=== PATIENT | male | born 1965 | race Caucasian/White ===

== ENCOUNTER 2016-08-28 09:44 | Emergency (ER) | payer OTHER ==
[~2016-08-28] VITALS: Ht 180.3 cm; Wt 113.6 kg
[~2016-08-28 09:44] MED LIST: BENZ200C44 PO; DIPH1TAB PO; METO-274 PO; NPR500T PO; PARO10OR3 PO
[2016-08-28 09:45] VITALS: BP 144/85; PULSE 78; RESP 15; O2SAT 96
--- NOTE | 2016-08-28 09:53 | ED.REPORT ---
HPI-Back Pain 40 and Over Date of Service Aug 28, 2016 ED Provider: Kain lBair MD A 51 year old male with a history of hypertension and anxiety presents to the ED complaining of right sided sciatica pain. The pt began a new job one month ago that involved lifting. He initially felt normal, but woke one morning 3-4 weeks ago with back pain, right leg weakness, and foot numbness. He began falling fairly frequently due to "his foot being floppy." He saw his PCP two weeks ago and had an MRI done emergently. He was prescribed pain medication, which ran out eight days ago. He returned to his PCP four days ago and was referred to Dr. Jefferson, orthopedist. He saw Dr. Jefferson two days ago who declined immediate surgery but arranged a follow up appointment for nerve testing on 03/2017. The pt did not feel that he could wait that long due to the pain. The pt also experienced an episode of incontinence this morning. Nursing Notes Stated Complaint: BACK PAIN Chief Complaint: Back Pain or Injury Nursing Notes Reviewed: Yes Allergies: Coded Allergies: No Known Allergies (Verified Allergy, Unknown, 03/02/16) Scheduled Dexamethasone (Dexamethasone) 4 Mg Tablet 8 MG PO DAILY Diphenoxylate/Atropine 2.5-0.025 mg (Lomotil 2.5-0.025 mg) 1 Each Tablet 1 TABLET PO QID Metoprolol Succinate ER (Metoprolol Succinate ER) 100 Mg Tab.er.24h 100 MG PO DAILY Paroxetine (Paxil) 10 Mg/5 Ml Oral.susp 20 MG PO HS Scheduled PRN Benzonatate (Benzonatate) 200 Mg Capsule 200 MG PO TID PRN PRN For Cough Lorazepam (Lorazepam) 1 Mg Tablet 1-2 MG PO TID PRN PRN For Anxiety Naproxen (Naproxen) 500 Mg Tab 500 MG PO BID PRN PRN For Pain Oxycodone (Roxicodone) 5 Mg Tablet 5-10 MG PO Q4H PRN PRN For Pain General Time Seen by MD: 09:52 Chief Complaint Back pain (sciatic) Hx Obtained From: Patient Arrived By: Walk-in Sudden in Onset?: No Onset Occurred: More than a week ago... Recent Healthcare: No recent hospitalization, Recent doctor visit Similar Sx Previous: Yes Past Medical History Past Medical History Hypertension Prostate cancer Anxiety Past Surgical History Prostate surgery eye surgery Family History Mother has history of stomach cancer Smoking History Never Smoker Social History Alcohol Use: Denies alcohol use Drug Use: Denies drug use Other Social History: Good social support, , Local resident Ambulatory Status Independent Review of Systems Review of Systems Note: incontinence x1 Constitutional: Denies: Fever Respiratory: Denies: Non-productive cough, Shortness of breath Cardiovascular: Denies: Chest pain GI: Denies: Abdominal pain, Vomiting Musculoskeletal: Reports: Back pain, Denies: Neck pain Neurologic: Reports: Weakness Complete sys rev & neg: except as marked. Physical Exam Initial Vital Signs Vital Signs (First) Date Time Temp Pulse Resp B/P Pulse Ox O2 Delivery O2 Flow Rate FiO2 08/28/16 09:45 36.4 78 15 144/85 96 Room Air Initial VS: Reviewed General/Constitutional: Awake, Alert Respiratory / Chest: Atraumatic, Breath sounds NL, Breath sounds = bilat, No respiratory distress Cardiovascular: Heart rate NL, Regular rhythm, Heart sounds NL Abdomen: Atraumatic, Soft, Non-tender Back: Atraumatic, Full range of motion Neurologic: Oriented X3, Speech NL, No motor deficits, No sensory deficits Neck: Atraumatic, Supple, Full range of motion Lower Extremity / Pelvis / MS: Atraumatic, Full range of motion right-sided foot drop lateral thighs are symmetric Skin: Atraumatic, Color NL, No rash, Warm, Dry Head / Eyes: Atraumatic, Normocephalic, PERRL, EOMI ENT: Atraumatic, Airway patent, Mucous membranes moist Upper Extremity / MS: Atraumatic, Full range of motion Psychiatric: Affect NL, Mood NL Re-Eval/Medical Decision Source of Hx: Old records Counseled Regarding: Diagnosis, Need for follow-up, When/why to return to ED Discharge & Departure Impression: Primary Impression: Radiculopathy of lumbar region Additional Impressions: Foot drop Laterality: right Qualified Code: M21.371 - Foot drop, right foot Fecal incontinence Fecal incontinence type: incomplete defecation Qualified Code: R15.0 - Incomplete defecation Disposition: Home Discharge Condition All VS Reviewed: Yes Condition: Stable Patient Instructions: Lumbar Radiculopathy (ED) Additional Instructions: I believe the ear symptoms are related to the disc herniation that you have. Follow up as planned on Tuesday. Medication changes: Discontinue ibuprofen while taking dexamethasone. Dexamethasone 8 mg daily through Tuesday. Oxycodone 5 mg tablets 1 or 2 every 4 hours. You could take 3 at a time if needed. Acetaminophen 1000 mg every 6 hours. New Medication: Lorazepam (for muscle spasm) 1 mg tablets one or 2 every 6 hours as needed for severe spasm. Be extremely cautious when taking this with the oxycodone as there respective sedative effects will be additive and potentially dangerous. Referrals: Roc Suarez MD (PCP) Scribe Attestation Portions of this note were transcribed by Terry Farmer. I, Dr. Blair personally performed the history, physical exam and medical decision-making; I reviewed and confirmed the accuracy of the information in the transcribed note. Signed by: Jessica Hubbard, 08/28/16 and 1022. copies to: Roc Suarez MD, Kirk H MD Aug 28, 2016 09:53 TERRY FARMER Aug 28, 2016 10:02
[2016-08-28] MEDS ORDERED: LORA1TAB PO (10:24)
[2016-08-28] MEDS ORDERED: DXM4T PO (10:24)
[2016-08-28] MEDS ORDERED: OXYC-474 PO (10:24)
== END 2016-08-28 10:35 | disposition home or self-care (01) ==
LOC: SED 09:44
DX: M54.16 Radiculopathy, lumbar region (principal); W18.39XA Other fall on same level, initial encounter; Y93.89 Activity, other specified; Y92.89 Other specified places as the place of occurrence of the external cause; Y99.8 Other external cause status; M21.371 Foot drop, right foot; R15.0 Incomplete defecation; I10 Essential (primary) hypertension

== ENCOUNTER 2016-09-02 18:59 | Emergency (ER) | payer OTHER ==
[~2016-09-02] VITALS: Ht 180.3 cm; Wt 159.1 kg
[~2016-09-02 18:59] MED LIST changes: +DXM4T PO; +LORA1TAB PO; +OXYC-474 PO
[2016-09-02 19:02] VITALS: BP 151/82; PULSE 102; RESP 20; O2SAT 97
--- NOTE | 2016-09-02 21:02 | ED.REPORT ---
HPI-Back Pain 40 and Over Date of Service Sep 02, 2016 ED Provider: Dr. Pelletier A 51 year old male with a history of disc herniation, HTN, and prostate cancer presents to the ED complaining of chronic lower back pain. Associated symptoms include numbness in legs, and some urinary incontinence from the pain. He denies any urine retention. He had a recent nerve study performed and was told that he needs surgery. He has an appointment to follow-up with his doctor in 5 days, but he does not have any pain medication. Patient thinks that pain may be related to recent change of work. 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 Nursing Notes Stated Complaint: LEFT LEG/LOWER BACK PAIN Chief Complaint: Extremity Trauma Nursing Notes Reviewed: Yes Allergies: Coded Allergies: No Known Allergies (Verified Allergy, Unknown, 03/02/16) Scheduled Dexamethasone (Dexamethasone) 4 Mg Tablet 8 MG PO DAILY Diphenoxylate/Atropine 2.5-0.025 mg (Lomotil 2.5-0.025 mg) 1 Each Tablet 1 TABLET PO QID Metoprolol Succinate ER (Metoprolol Succinate ER) 100 Mg Tab.er.24h 100 MG PO DAILY Paroxetine (Paxil) 10 Mg/5 Ml Oral.susp 20 MG PO HS Scheduled PRN Benzonatate (Benzonatate) 200 Mg Capsule 200 MG PO TID PRN PRN For Cough Lorazepam (Lorazepam) 1 Mg Tablet 1-2 MG PO TID PRN PRN For Anxiety Naproxen (Naproxen) 500 Mg Tab 500 MG PO BID PRN PRN For Pain Oxycodone (Roxicodone) 5 Mg Tablet 5-10 MG PO Q4H PRN PRN For Pain General Time Seen by MD: 21:02 Chief Complaint Back pain Hx Obtained From: Patient Arrived By: Walk-in Sudden in Onset?: No Onset Occurred: Onset unknown (chronic pain) Symptom Duration: Since onset (chronic pain) Severity: Current: Severe Severity: Maximum: Severe Recent Healthcare: Recent doctor visit (Visited ED 08/28/2106 for back pain.) Similar Sx Previous: No Past Medical History Past Medical History Hypertension Prostate cancer Anxiety disc herniation Visited ED on 08/28/2016 for back pain Reports: GERD, Denies: Diabetes mellitus Past Surgical History Prostate surgery eye surgery as child, cannot move right eye Family History Mother has history of stomach cancer Smoking History Never Smoker Social History Alcohol Use: Denies alcohol use Drug Use: Denies drug use Other Social History: Good social support, , Local resident Ambulatory Status Independent Review of Systems Review of Systems Note: Urine incontinence related to pain. Denies urine retention. Constitutional: Denies: Chills, Fever Respiratory: Denies: Non-productive cough Musculoskeletal: Reports: Back pain Neurologic: Reports: Numbness (legs) Complete sys rev & neg: except as marked. Physical Exam Physical Exam Notes: Initial Vital Signs Vital Signs (First) Date Time Temp Pulse Resp B/P Pulse Ox O2 Delivery O2 Flow Rate FiO2 09/02/16 19:02 36.2 102 20 151/82 97 Room Air Initial VS: Reviewed General/Constitutional: Awake, Alert Respiratory / Chest: Atraumatic, Breath sounds NL, Breath sounds = bilat, No respiratory distress, No rales, No rhonchi, No wheezing Cardiovascular: Heart rate NL, Regular rhythm, Heart sounds NL, No gallop, No murmurs, No rubs Abdomen: No guarding, No rebound Back: No midline vertebral tend No signs of Cord Syndrome Neurologic: Oriented X3, Speech NL Burning paresthesia sensation down right lateral leg. Patient has chronic weakened dorsiflexion of right leg with plantarflexion. No new neurologic deficit. Skin: Atraumatic, Color NL, Warm, Dry Head / Eyes: Atraumatic, Normocephalic, PERRL, EOMI ENT: Atraumatic, Mucous membranes moist Ankle / Foot: Full range of motion (Normal flexion dorsifelxion and plantar flexion of feet. ) Re-Eval/Medical Decision Med Decision/Clinical Course No signs of cord syndrome. He does have chronic right leg weakness with dorsiflexion. This is why he had the nerve conduction test. Today he has pain. His pain is adequately treated. His neurologic status was at his baseline per him and his . As such she will be discharged home with a short course of Percocet and a Medrol Dosepak. Follow-up has been established. Routine opiate and back pain aftercare instructions given. Source of Hx: Old records Re-Evaluation/Progress : Time of Eval: 22:23 Re-Evaluation/Progress Note: Rechecked patient, explained diagnosis, and plan for discharge. Patient understands and agrees with the plan. All questions addressed. Counseled Regarding: Diagnosis, Need for follow-up, When/why to return to ED Discharge & Departure Shift Change Sign-Out Response to Therapy: Improved Impression: Primary Impression: Radiculopathy of lumbar region Disposition: Home Discharge Condition All VS Reviewed: Yes Condition: Stable Patient Instructions: Lumbar Radiculopathy (ED) Additional Instructions: Take 1-2 Percocet every 6 hours as needed for pain. Do not take any other acetaminophen products while taking the Percocet. Finish the Medrol Dosepak. Do not take any anti-inflammatories while taking the Medrol Dosepak. Do not drive or drink alcohol or consume acetaminophen while taking the Medrol Dosepak. Keep your outpatient follow-up. I concur that he most likely will need surgical intervention. If he develops any loss of bowel or bladder control or urine retention or new neurologic symptoms then come back to emergency department. Do not hesitate to return if any problems or any worsening symptoms. Referrals: Roc Suarez MD (PCP) Scribe Attestation Portions of this note were transcribed by Keenan Herman. I, Dr. Pelletier personally performed the history, physical exam and medical decision-making; I reviewed and confirmed the accuracy of the information in the transcribed note. Signed by: Jessica Beaulieu, 09/02/2016, 4216. copies to: Roc Suarez MD, Todd P DO Sep 02, 2016 21:02 Keenan Herman Sep 02, 2016 21:10
[2016-09-02] MEDS ORDERED: HYDROmorphone 1 mg/mL Inj IM ONE (21:10)
[2016-09-02] MEDS ORDERED: Dexamethasone 10 mg/mL Inj IM ONE (21:10)
[2016-09-02] MEDS ORDERED: _oxyCODONE/APAP 5-325 mg Tablet PO PRN (22:05)
[2016-09-02 22:39] VITALS: BP 146/91; PULSE 89; O2SAT 95
[2016-09-02 22:45] VITALS: BP 146/91; PULSE 89; O2SAT 95
== END 2016-09-02 22:47 | disposition home or self-care (01) ==
LOC: SED 18:59
DX: M54.16 Radiculopathy, lumbar region (principal); R20.0 Anesthesia of skin; R32 Unspecified urinary incontinence; I10 Essential (primary) hypertension; K21.9 Gastro-esophageal reflux disease without esophagitis
CPT/HCPCS: 96372; 99284; J1100; J1170; J1885

== ENCOUNTER 2016-09-07 20:35 | Inpatient (IN) | payer OTHER ==
[~2016-09-07] VITALS: Ht 180.3 cm; Wt 145.8 kg
[2016-09-07 20:54] VITALS: BP 126/81; PULSE 105; RESP 18; O2SAT 96
--- NOTE | 2016-09-07 21:36 | ED.REPORT ---
HPI-General Illness Date of Service Sep 07, 2016 ED Provider: Claus Hackett MD The patient is a 51 year old male with history of hypertension, GERD, disc herniation, and anxiety who presents to the emergency department complaining of right-sided chest pain that began 4-5 days ago. He describes the pain as "stabbing." The pain radiates through to his back. The pain is worse with breathing and coughing. He has never had chest pain in the past. He denies history of blood clots. He has also had a cough and congestion. The patient states he started experiencing worsening sciatic back pain that began last week. He was seen in the emergency department and discharged home with outpatient followup with a spine surgeon. He has been taking oxycodone for pain and his thinks that he may have been nodding off and choking on his secretions. Nursing Notes Stated Complaint: COUGH Chief Complaint: General Complaint Nursing Notes Reviewed: Yes Allergies: Coded Allergies: No Known Allergies (Verified Allergy, Unknown, 03/02/16) Scheduled Metoprolol Succinate ER (Metoprolol Succinate ER) 100 Mg Tab.er.24h 100 MG PO QAM Oxycodone HCl/Acetaminophen 5-325 (Endocet 5-325) 1 Each Tablet 1.5 TABLET PO Q4H 0200,0600,1000,1400,1800,2200 Scheduled PRN Lorazepam (Lorazepam) 1 Mg Tablet 1-2 MG PO TID PRN PRN For Anxiety General Time Seen by MD: 21:09 Chief Complaint Chest pain Hx Obtained From: Patient, Spouse Arrived By: Walk-in Sudden in Onset?: Yes Onset Occurred: 5 days ago Symptom Duration: Since onset Location: : Back: Chest Quality: Painful, Stabbing Severity: Current: Moderate Severity: Maximum: Severe Recent Healthcare: No recent hospitalization, Recent doctor visit Similar Sx Previous: No Past Medical History Past Medical History Hypertension Prostate cancer Anxiety Disc herniation Reports: GERD Past Surgical History Prostate surgery eye surgery as child, cannot move right eye Family History Mother has history of stomach cancer Smoking History Never Smoker Social History Alcohol Use: Denies alcohol use Drug Use: Denies drug use Other Social History: Good social support, , Local resident Ambulatory Status Independent Review of Systems Full Review of Systems Ears / Nose / Throat: Reports: Nasal congestion Respiratory: Reports: Non-productive cough Cardiovascular: Reports: Chest pain Musculoskeletal: Reports: Back pain, Extremity pain Complete sys rev & neg: except as marked. Physical Exam Vital Signs Vital Signs Date Time Temp Pulse Resp B/P Pulse Ox O2 Delivery O2 Flow Rate FiO2 09/07/16 23:06 108 19 149/103 92 Nasal Cannula 2 09/07/16 20:54 36.9 105 18 126/81 96 Room Air Initial VS: Reviewed Head / Eyes: Atraumatic, Normocephalic, PERRL ENT: Mucous membranes moist, Conjunctiva normal, No scleral icterus Neck: Supple, Non-tender, Full range of motion Abdomen / GI: Soft, Non-tender, No guarding, No rebound, No distention Lymphatic: No lymphadenopathy Extremities: No swelling Skin: Warm, Dry, No cyanosis Psychiatric: Mood/affect normal, Behavior normal, Normal thought content General/Constitutional: Awake, Alert, Cooperative Respiratory / Chest: No respiratory distress Wheezing / Retractions: Positive: Wheezing expiratory Coarse breath sounds bilaterally. Reproducible tenderness about his right lateral chest wall. Cardiovascular: Heart rate NL, Regular rhythm, Heart sounds NL, Cap refill not delayed, Peripheral circulation NL, Pulses = bilaterally Lower Extremity / Pelvis / MS: No swelling, Non-tender, Neurologic intact, Vascular intact, No edema No unilateral calf swelling or tenderness. Neurologic: Oriented X3, Speech NL, No sensory deficits Reduced strength with plantar flexion of the right foot which is not new. Interpretation & Diagnostics Lab Results Interpretation Result Diagram: 09/07/160 09/07/16 2250 Test 09/07/16 22:50 White Blood Count 18.0th/mm3 (3.8-10.1) Red Blood Count 4.66mil/mm3 (4.40-5.80) Hemoglobin 13.6g/dL (13.8-17.2) Hematocrit 42.3% (41.0-50.0) Mean Corpuscular Volume 90.8fL (81-100) Mean Corpuscular Hemoglobin 29.2pg (27.0-35.0) Mean Corpuscular Hemoglobin Concent 32.2% (32.0-37.0) Red Cell Distribution Width 14.3% (12.3-15.4) Platelet Count 320bil/L (150-400) Neutrophils (%) (Auto) 76% (40-74) Lymphocytes (%) (Auto) 16% (14-46) Monocytes (%) (Auto) 6% (4-12) Eosinophils (%) (Auto) 0% (0-5) Basophils (%) (Auto) 0% (0-3) Band Neutrophils % 5% (1-5) D-Dimer 2.66mg/L FEU (<0.50) Sodium Level 132mEq/L (134-144) Potassium Level 4.1mEq/L (3.5-5.2) Chloride Level 89mEq/L (97-108) Carbon Dioxide Level 26mmol/L (18-29) Blood Urea Nitrogen 16mg/dL (6-24) Creatinine 0.83mg/dL (0.76-1.27) Estimat Glomerular Filtration Rate 103mL/min (>59) Glucose Level 117mg/dL (60-99) Calcium Level 9.3mg/dL (8.5-10.1) Magnesium Level 2.3mg/dL (1.6-2.6) Total Bilirubin 0.6mg/dL (0.0-1.2) Aspartate Amino Transf (AST/SGOT) 21U/L (0-50) Alanine Aminotransferase (ALT/SGPT) 32U/L (0-44) Alkaline Phosphatase 101U/L (25-150) Troponin T 0.010ug/L (0.0-0.011) Total Protein 7.9g/dL (6.4-8.4) Albumin 3.2g/dL (3.4-5.0) Hold Abarca Top Tube Received (Received) ECG Interpretation ECG Interpretation: Sinus rhythm with a rate of 95 bpm Normal axis Normal intervals No ST segment elevations No T wave abnormalities No prior EKGs available for comparison Time: 21:30 Interpreted by: ED physician X-Ray Chest Interpretation Chest Xray Interpretation: IMPRESSION: Dense pneumonia right upper lobe, both anteriorly and within what appears to be the superior segment right lower lobe. This is best seen on the lateral view. It is unlikely that a mass lesion has developed since 04/13/16 when the same areas appeared free of active disease but followup plain films after symptoms have improved to ensure that mass lesion is not present is recommended. Dictated by: Tyrese Garcia M.D. on 09/07/2016 at 22:12 Interpretation / Wet Read by: Interpret - Radiologist Re-Eval/Medical Decision Med Decision/Clinical Course The patient is a 51 year old male with history of hypertension, GERD, disc herniation, and anxiety who presents to the emergency department complaining of right-sided chest pain that began 4-5 days ago. He describes the pain as "stabbing." The pain radiates through to his back. The pain is worse with breathing and coughing. He has never had chest pain in the past. He denies history of blood clots. He has also had a cough and congestion. The patient states he started experiencing worsening sciatic back pain that began last week. He was seen in the emergency department and discharged home with outpatient followup with a spine surgeon. He has been taking oxycodone for pain and his thinks that he may have been nodding off and choking on his secretions. Upon arrival the patient is borderline tachycardic with oxygen saturation in the low 90s on room air improving to the high 90s on 2 L by nasal cannula. CXR Dense pneumonia right upper lobe, both anteriorly and within what appears to be the superior segment right lower lobe. This is best seen on the lateral view. It is unlikely that a mass lesion has developed since 04/13/16 when the same areas appeared free of active disease but followup plain films after symptoms have improved to ensure that mass lesion is not present is recommended. LABS: leukocytosis 18, CBC otherwise unremarkable, d-dimer 2.66, CMP: mild hyponatremia with a Na of 132, Ca WNL, Mg WNL, K WNL, mild albuminemia, otherwise unremarkable, troponin negative I initiated treatment with ceftriaxone and azithromycin for community-acquired pneumonia. His initial presentation was not entirely clear and given concern for possible pulmonary embolism I obtained a d-dimer which has come back elevated. That being said, the overall clinical picture is highly convincing for pneumonia and I do not feel that further immediate workup for pulmonary embolism is required. Prior to starting antibiotics I obtained 2 sets of blood cultures. He is then placed on maintenance fluids. Given his hypoxia and the extent of his pneumonia I have admitted him to the hospital service for further workup and management. He was transferred in stable condition. Source of Hx: Old records Time of Eval: 23:17 Re-Evaluation/Progress Note: Rechecked the patient. Discussed plan for admission. All questions were addressed. Consultation : Consulted With: Hospitalist Requested Call at: 23:19 Spectacle Truer: Will see patient, Agrees with eval, Agrees with plan, Accepts admit Counseled Regarding: Diagnosis, Lab results, Need for admission Discharge & Departure Primary Impression: Pneumonia Pneumonia type: due to unspecified organism Laterality: right Lung location : unspecified part of lung Qualified Code: J18.9 - Pneumonia, unspecified organism Additional Impressions: Hypoxia Tachycardia Aspiration into respiratory tract Encounter type: initial encounter Qualified Code: T17.908A - Unspecified foreign body in respiratory tract, part unspecified causing other injury, initial encounter Leukocytosis Leukocytosis type: unspecified Qualified Code: D72.829 - Elevated white blood cell count, unspecified Elevated d-dimer Sciatica Laterality: unspecified laterality Qualified Code: M54.30 - Sciatica, unspecified side Disposition: ADMITTED TO HOSPITAL Discharge Condition All VS Reviewed: Yes Condition: Stable Referrals: Roc Suarez MD (PCP) Crit Care Except Billable Proc Time Spent: 30-74 minutes Services Performed: Patient management by me, Time spent at bedside, Reviewing test results, Reviewing imaging, Discussing patient care, Documentation in record, Time with fam/surrogate Scribe Attestation Portions of this note were transcribed by Susana High. I, Dr. Hackett personally performed the history, physical exam and medical decision-making; I reviewed and confirmed the accuracy of the information in the transcribed note. Signed by: Jessica Londono, 09/07/2016 at 0001. copies to: Roc Suarez MD, Beck O MD Sep 07, 2016 21:36 Susana High Sep 07, 2016 22:08
[2016-09-07] MEDS ORDERED: 0.9% Sodium Chloride 1,000 ML IV ONE (22:12)
--- NOTE | 2016-09-07 22:17 | DRSVH ---
PROCEDURE: X-RAY CHEST, TWO VIEWS ([id number]) INDICATIONS: cough TECHNIQUE: 2 views of the chest were acquired. COMPARISON: None. FINDINGS: Surgical changes and devices: None. Lungs and pleura: No pleural effusions or pneumothorax. Lungs are abnormal, with both anterior righ t upper lobe and superior segment right lower lobe opacification to the degree that dense pneumonia i s considered present (and much less likely potentially central neoplasm). Mediastinum: Mediastinal contours are normal. Heart size is normal. Bones and chest wall: No suspicious bony abnormalities. Soft tissues appear unremarkable. IMPRESSION: Dense pneumonia right upper lobe, both anteriorly and within what appears to be the supe rior segment right lower lobe. This is best seen on the lateral view. It is unlikely that a mass le shirin has developed since 04/13/16 when the same areas appeared free of active disease but followup pl ain films after symptoms have improved to ensure that mass lesion is not present is recommended. Dictated by: Tyrese Garcia M.D. on 09/07/2016 at 22:12 Approved by: Tyrese Garcia M.D. on 09/07/2016 at 22:15
[2016-09-07 23:04] LABS: Mean Corpuscular Hemoglobin 29.2 pg (27.0-35.0); Mean Corpuscular Volume 90.8 fL (81-100)
[2016-09-07 23:06] VITALS: BP 149/103; PULSE 108; RESP 19; O2SAT 92
[2016-09-07] MEDS ORDERED: cefTRIAXone Inj 2,000 MG in Dextrose 5% Minibag Plus 50 ML IV ONE (23:20)
[2016-09-07] MEDS ORDERED: Azithromycin Inj 500 MG in Dextrose 5% w/Vial Mate 250 ML IV ONE (23:20)
[2016-09-07 23:22] LABS: BASOPHILS % (AUTO) 0 % (0-3); EOSINOPHILS % (AUTO) 0 % (0-5); MONOCYTES % (AUTO) 6 % (4-12); NEUTROPHILS % (AUTO) 76 % (40-74); Platelet Count 320 bil/L (150-400)
[2016-09-07 23:29] LABS: TROPONIN T 0.01 ug/L (0.0-0.011)
[2016-09-07 23:40] LABS: Magnesium 2.3 mg/dL (1.6-2.6)
[2016-09-08] VITALS (8 sets, daily range): BP systolic 101–151; BP diastolic 61–99; PULSE 80–110; RESP 18–20; O2SAT 92–99
[2016-09-08] MEDS ORDERED: OXYC-407 PO (00:05)
[2016-09-08] MEDS ORDERED: Polyethylene Glycol (PEG) 17 Gm Powder PO PRN (03:15)
[2016-09-08] MEDS ORDERED: Alum-Mag Hydrox-Simeth 30 mL Suspension PO PRN (03:15)
--- NOTE | 2016-09-08 03:38 | PCM.HPMED ---
Subjective Date of Service Sep 08, 2016 Primary Provider: Admitting Physician: Rosa Carter DO Primary Care Physician: Roc Suarez MD Attending Physician: Rosa Carter DO Admit Status: From the Emergency Department Chief Complaint: Pneumonia, community acquired History of Present Illness: 51yo man with distant history of prostate cancer s/p resection, recent work injury of low back resulting in right sided sciatica and right foot drop presents with subjective intermittent fevers, non-productive cough, and lower right sided chest pain worsening over the last four days. He has been somewhat immobilized and on prednisone x3 for his back injury which he believes may have led to his being susceptible to this likely pneumonia. Review of Systems: complete ROS is negative except as noted above in the HPI. 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 Sciatica with foot drop Surgical History Lazy eye surgery as Prostatectomy Family History Father of lung cancer at age 44 Mother of ovarian cancer at age 70 Social History Hx Alcohol Use: No Hx Substance Use: No Hx Tobacco Use: No Smoking Status: Never Smoker Living Arrangement: with Family Exam Vital Signs Vital Sign - Last Date Time Temp Pulse Resp B/P Pulse Ox O2 Delivery O2 Flow Rate FiO2 09/08/16 02:01 99 09/08/16 00:50 37.5 20 128/82 99 Room Air 09/08/16 00:14 2 Intake and Output 09/07/16 09/07/16 09/08/16 Cumulative From/Thru 15:00 23:00 07:00 09/07/16 20:54 - 09/08/16 01:28 Intake Total 1000 ml 1000 ml Balance 1000 ml 1000 ml Intake IV Total 1000 ml 1000 ml Exam General: Alert, Oriented X3, Cooperative, No Acute Distress, Obese Head: Normocephalic, atraumatic. External ears normal. Eyes: PERRLA, EOMI. Anicteric sclerae. Mouth: Mouth Normal, Mucous Membranes Moist/[place] Neck: Neck supple with full range of motion. Chest & Lungs: Rhonchi in right base and mid lunfields, diffuse expiratory wheeze, consolidation on percussion of right lower chest. Cardiovascular: Regular Rate/Rhythm, Normal S1, Normal S2, No Murmurs/Rubs/ Gallops Abdomen: Non-tender, Non-distended, No masses, Normoactive bowel tones, Soft Musculoskeletal: Right leg is weak, can plantar flex and can't dorsiflex foot. Extremities: No cyanosis/clubbing/edema bilaterally Neurological: Grossly Neurologically Intact, Cranial Nerves 2-12 Intact, Normal Speech Lab and Diagnostics Labs Laboratory Tests Test 09/07/16 22:30 09/07/16 22:50 White Blood Count 18.0th/mm3 (3.8-10.1) Red Blood Count 4.66mil/mm3 (4.40-5.80) Hemoglobin 13.6g/dL (13.8-17.2) Hematocrit 42.3% (41.0-50.0) Mean Corpuscular Volume 90.8fL (81-100) Mean Corpuscular Hemoglobin 29.2pg (27.0-35.0) Mean Corpuscular Hemoglobin Concent 32.2% (32.0-37.0) Red Cell Distribution Width 14.3% (12.3-15.4) Platelet Count 320bil/L (150-400) Neutrophils (%) (Auto) 76% (40-74) Lymphocytes (%) (Auto) 16% (14-46) Monocytes (%) (Auto) 6% (4-12) Eosinophils (%) (Auto) 0% (0-5) Basophils (%) (Auto) 0% (0-3) Band Neutrophils % 5% (1-5) D-Dimer 2.66mg/L FEU (<0.50) Sodium Level 132mEq/L (134-144) Potassium Level 4.1mEq/L (3.5-5.2) Chloride Level 89mEq/L (97-108) Carbon Dioxide Level 26mmol/L (18-29) Blood Urea Nitrogen 16mg/dL (6-24) Creatinine 0.83mg/dL (0.76-1.27) Estimat Glomerular Filtration Rate 103mL/min (>59) Glucose Level 117mg/dL (60-99) Lactic Acid Level 1.5mmol/L (0.4-2.0) Calcium Level 9.3mg/dL (8.5-10.1) Magnesium Level 2.3mg/dL (1.6-2.6) Total Bilirubin 0.6mg/dL (0.0-1.2) Aspartate Amino Transf (AST/SGOT) 21U/L (0-50) Alanine Aminotransferase (ALT/SGPT) 32U/L (0-44) Alkaline Phosphatase 101U/L (25-150) Troponin T 0.010ug/L (0.0-0.011) Total Protein 7.9g/dL (6.4-8.4) Albumin 3.2g/dL (3.4-5.0) Hold Abarca Top Tube Received (Received) Microbiology 09/07/16 Blood Culture, Received Pending Result Diagram: 09/07/16224909/07/162249 Microbiology Blood and Sputum cultures pending X-Rays, CTs and MRIs CXR IMPRESSION: Dense pneumonia right upper lobe, both anteriorly and within what appears to be the superior segment right lower lobe. This is best seen on the lateral view. It is unlikely that a mass lesion has developed since 04/13/16 when the same areas appeared free of active disease but followup plain films after symptoms have improved to ensure that mass lesion is not present is recommended. 12-lead ECG NSR Assessment & Plan 51yo man with community acquired pneumonia: cough, fevers, lower right sided chest pain worsening over four days. Immobility and prednisone treatments for new low back pain and sciatica that started4 weeks ago may have made him susceptible to this. Sepsis, acute, POA -secondary to CAP -WBC >12, HR >90, RR >20 -treatment as below 1. Community acquired pneumonia, POA. CXR makes clear suggestion of right sided pneumonia. -legionella and s. pneumo antigens ordered -MRSA nasal swab pending - blood and sputum cultures pending -CBC w/diff and CMP in morning -Ceftriaxone 2gm IV q24h and Azithromycin 500mg IV q24h, both for four more days. -repeat CXR before discharge per radiology concern as above. -encourage fluid intake and ambulation Hyponatremia, acute, POA -2/2 hypovolemia -CTM 2. Leukocytosis, POA, secondary to infection with CAP -CBC again in am. 3. Elevated D-Dimer of 2.66, POA. Wells score of 3 indicating 16 percent chance of PE. -If symptoms of hypoxia and chest pain do not improve with antibiotics consider CTA for PE 4. Acute low back pain with sciatica and right sided foot drop, POA. Patient has had MRI and does have an appointment with an orthopedic surgeon -Percocet 10-325mg q4h PO PRN for pain 5. Anxiety, POA. Patient has Lorazepam 1-2mg PO TID PRN -continue home medication 6. Hypertension, POA. -continue home Metoprolol XL 100mg PO daily. PRN medications for nausea, heartburn, and constipation: ondansetron, maalox, senna, miralax. Pain Evaluation: Adequate Pain Control VTE Prophylaxis: Sub-Q Heparin (Unfractionated) VTE Mechanical Devices: Intermittant Pneumatic CD Resuscitation Status: CPR: Attempt Resuscitation Attending Statement The patient was seen and examined together with house staff on 09/08/2016 and I agree with the history, exam and plan as outlined in the note above. Alonso Christensen DO Sep 08, 2016 03:38 Rosa Carter DO Sep 08, 2016 04:53
[2016-09-08] MEDS ORDERED: LORazepam 1 mg Tablet PO PRN (04:40)
[2016-09-08] MEDS: oxyCODONE-Acetamin 10-325 mg Tablet PO PRN ×5 (05:51→23:43)
--- NOTE | 2016-09-08 06:29 | NUR ---
Admit Pt admitted at 0045 from the Ed with diagnosis of pneumonia and hypoxia. Pt is A/O x4, able to make needs known. Oriented to room, BR and call light. Pt is FULL CODE. Pt has cx low back/sciatica pain. He rates is 8/10. He c/o pain at 5/10 to right rib area from coughing. IV patent right AC, with azithromycin infusing, SL after. Pt on 2L o2 via NC sat 95-97%. Pt is on tele and is sinus tachy
[2016-09-08 07:20] LABS: TROPONIN T 0.01 ug/L (0.0-0.011)
[2016-09-08] MEDS: Heparin 5,000 Unit/mL Inj SUBQ SCH ×3 (07:52→23:59)
[2016-09-08] MEDS: MeTOProlol XL 50 mg ER24 Tablet PO SCH (07:52)
[2016-09-08] MEDS: Sodium Chloride LOK Flush 10 mL Syringe IVFLUSH SCH ×3 (07:53→23:48)
[2016-09-08 07:56] LABS: Mean Corpuscular Hemoglobin 28.8 pg (27.0-35.0); Mean Corpuscular Volume 91.2 fL (81-100); Platelet Count 298 bil/L (150-400)
[2016-09-08 08:15] LABS: BASOPHILS % (AUTO) 0 % (0-3); EOSINOPHILS % (AUTO) 0 % (0-5); MONOCYTES % (AUTO) 15 % (4-12); NEUTROPHILS % (AUTO) 75 % (40-74)
[2016-09-08] MEDS: oxyCODONE-Acetamin 5-325 mg Tablet PO SCH ×4 (10:00→21:55)
--- NOTE | 2016-09-08 11:58 | NUR ---
Social Work - Screening Note: Data: EMR reviewed. Pt is a 51 y/o male who was admitted for pneumonia/hypoxia per H&P. Pt's state his insurance is [facility] and her PCP is Roc Suarez MD. MARKIE met with Pt and explained role. Pt does not have group home care insurance or VA benefits. Pt has no history of HH or SNF services Pt resides at home with girlfriend where she remains independent. Pt drives and does not use any DME. SW discussed DPOA/ advanced directive and Pt declined further information. Pt's sister to provide transport home at discharge. SW provided phone number and plan on white board in room. No anticipated discharge needs. SW will continue to follow if needs arise. Assessment:Pt who is independent at baseline. Plan:Pt to discharge home today via POV. No anticipated discharge needs. SW will continue to follow if needs arise. ZAIDA Philippe Addendum: 09/08/16 at 1216 by JOSHUA CARPIO NOTE ENTERED ON WRONG PATIENT-PLEASE SEE CORRECT NOTE BELOW: Social Work - Screening Note: Data: EMR reviewed. Pt is a 51 y/o male who was admitted for pneumonia/hypoxia per H&P. Pt's state his insurance is [facility] and her PCP is Roc Suarez MD. MARKIE met with Pt and explained role. Pt does not have group home care insurance or VA benefits. Pt has no history of HH or SNF services Pt resides at home with girlfriend where he remains independent. Pt drives and does not use any DME. SW discussed DPOA/ advanced directive and Pt declined further information. 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 SW will follow-up with request. Pt's girlfriend to provide transport home at discharge. SW provided phone number and plan on white board in room. No anticipated discharge needs. SW will continue to follow. Assessment:Pt who is independent at baseline. Plan:Pt to discharge home today via POV. No anticipated discharge needs. SW will continue to follow. ZAIDA Philippe
[2016-09-08] MEDS: cefTRIAXone Inj 2,000 MG in Dextrose 5% Minibag Plus 50 ML IV SCH (23:44)
[2016-09-09 00:18] VITALS: BP 154/80; PULSE 81; RESP 18; O2SAT 98
[2016-09-09] MEDS: Azithromycin Inj 500 MG in Dextrose 5% w/Vial Mate 250 ML IV SCH ×2 (00:54→23:51)
[2016-09-09] MEDS: oxyCODONE-Acetamin 5-325 mg Tablet PO SCH ×6 (02:07→22:44)
--- NOTE | 2016-09-09 02:09 | NUR ---
Pain Patient has complained of pain at a 9/10 to 7/10 on pain scale throughout shift. Percocet 10-325mg and Percocet 5-325 administered for pain. Patient states sciatica pain is worse than right back pain due from the pneumonia. VSS. Call light within reach. Care continues.
[2016-09-09 05:22] VITALS: BP 157/77; PULSE 89; RESP 22; O2SAT 95
[2016-09-09 05:57] VITALS: PULSE 82
[2016-09-09 06:09] LABS: Mean Corpuscular Volume 91.6 fL (81-100)
[2016-09-09 08:00] VITALS: PULSE 105
[2016-09-09] MEDS: Heparin 5,000 Unit/mL Inj SUBQ SCH ×2 (08:25→17:25)
[2016-09-09] MEDS: MeTOProlol XL 50 mg ER24 Tablet PO SCH (08:25)
[2016-09-09] MEDS: Sodium Chloride LOK Flush 10 mL Syringe IVFLUSH SCH ×3 (08:30→23:52)
--- NOTE | 2016-09-09 09:26 | NUR ---
Telemetry Notified Dr. Rodriguez r/t patient is on Tele and elevated D-dimer in the ER. per Dr Rodriguez, no Tele until i see him. Called and notified biomass technician.
--- NOTE | 2016-09-09 11:39 | NUR ---
Checked account notes and [facility] has seen patient and they did not screen patient says he has tried and is over income. Patient also stated to [facility] that he is working on reinstating [employer] plan. 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
[2016-09-09 12:18] VITALS: BP 150/83; PULSE 94; RESP 20; O2SAT 95
[2016-09-09] MEDS ORDERED: Codeine-guaiFENesin 5 mL Syrup PO PRN (18:15)
--- NOTE | 2016-09-09 18:41 | DRSVH ---
PROCEDURE: CT ANGIO CHEST PULMONARY EMBOLISM ([id number]) INDICATIONS: dyspnea TECHNIQUE: After the administration of intravenous contrast, 2 mm thick sections acquired from the pulmonary api reggie to the posterior costophrenic angles. 3-dimensional maximum intensity projection (MIP) coronal a nd sagittal reformats were then acquired through the thorax. For radiation dose reduction, the follo wing was used: automated exposure control, adjustment of mA and/or kV according to patient size. COMPARISON: [facility], CR, XR CHEST 2VW, 09/07/2016, 21:43. FINDINGS: Image quality: Excellent. Pulmonary arteries: Pulmonary arteries are normal in size, and demonstrate no intraluminal filling d efects to suggest central pulmonary embolism. Lungs and pleura: There are prominent right greater than left areas of consolidation and patchy densi ty in both lungs consistent with extensive pneumonia. Compared to the chest x-ray of the previous 2 d ays the pneumonia is thought to have worsened.. No pleural effusions or pneumothorax. Central and p eripheral airways are patent. Mediastinum: Heart size is normal, without pericardial effusion. No mediastinal or hilar adenopathy . Thoracic aorta is normal in caliber and enhancement. Esophagus is normal in caliber, without hiat al hernia. Bones and chest wall: No suspicious bony lesions. Ribs and thoracic spine appear intact throughout. Thyroid gland is within normal limits.. No axillary or supraclavicular adenopathy. Abdomen: Visualized upper abdominal solid organs appear normal in the early arterial phase of enhanc ement. IMPRESSION: No evidence for pulmonary embolus. Extensive pneumonia as seen on the chest x-ray of 09/07/16. Allowing for differences in technique the pneumonia is felt to be slightly worse currently than on the previous chest x-ray because of involvem ent of portions of the left lung as well the Dictated by: Bebo Paniagua M.D. on 09/09/2016 at 18:35 Approved by: Bebo Paniagua M.D. on 09/09/2016 at 18:39
--- NOTE | 2016-09-09 19:33 | NUR ---
Telemetry Dr Rodriguez seen this patient before dinner and no new orders for Tele received.
[2016-09-09 20:49] VITALS: BP 133/73; PULSE 106; RESP 20; O2SAT 96
[2016-09-09] MEDS: Codeine-guaiFENesin 10 mL Syrup PO PRN (21:07)
--- NOTE | 2016-09-09 21:36 | PCM.PNMED ---
Subjective Date of Service Sep 09, 2016 Subjective Patient says still dyspneic though not on oxygen anymore, has pleuritic pain. Wants something for cough at night. He talks extensively regarding his right knee being swollen, precv ankle and foot x-rays were negative. States that he is planning possible surgery due to sciatica on the right leg. States his left eye does not move. Denies overnight fevers chills but states that he feels very fatigued Exam Vital Signs Vital Sign - Last Date Time Temp Pulse Resp B/P Pulse Ox O2 Delivery O2 Flow Rate FiO2 09/09/16 17:54 Supplement Oxygen 09/09/16 12:18 37.1 94 20 150/83 95 09/08/16 05:50 2.00 Intake and Output 09/08/16 09/08/16 09/09/16 Cumulative From/Thru 15:00 23:00 07:00 09/07/16 20:54 - 09/09/16 06:24 Intake Total 600 ml 1350 ml 1205 ml 4155 ml Output Total 250 ml 250 ml Balance 350 ml 1350 ml 1205 ml 3905 ml Intake Oral 600 ml 1350 ml 400 ml 2350 ml IV Total 805 ml 1805 ml Output Urine Total 250 ml 250 ml # Voids 2 1 2 5 # Bowel Movements 0 0 0 0 Exam General: NAD, laying in bed, some what dyspneic male HEENT: NCAT, poor dentition Eyes: [place] conjunctivae. No ptosis, Neck: No masses, trachea midline, no thyromegaly Lungs: CTA with normal respiratory effort, positive for wheezing and diminished lung sounds CV: RRR, no murmurs/rubs/gallops, normal PMI GI: Soft, non-tender with no hepatosplenomegaly Extremities: Swollen nonerythematous right knee Skin: Warm and dry. Psych: A&O X3, with approprate affect IVs and Medications IV Fluids None Medications Reviewed: Medications were reviewed in detail Lab and Diagnostics Result Diagram: 09/09/1653909/09/16 0540 Microbiology Blood and Sputum cultures pending X-Rays, CTs and MRIs CXR IMPRESSION: Dense pneumonia right upper lobe, both anteriorly and within what appears to be the superior segment right lower lobe. This is best seen on the lateral view. It is unlikely that a mass lesion has developed since 04/13/16 when the same areas appeared free of active disease but followup plain films after symptoms have improved to ensure that mass lesion is not present is recommended. 12-lead ECG NSR Assessment & Plan 51yo man with community acquired pneumonia: cough, fevers, lower right sided chest pain worsening over four days. Immobility and prednisone treatments for new low back pain and sciatica that started4 weeks ago may have made him susceptible to this. 1. Sepsis secondary to Community acquired pneumonia, POA. CXR makes clear suggestion of right sided pneumonia. -legionella and s. pneumo antigens ordered: Negative -MRSA nasal swab pending: Positive - blood and sputum cultures pending: Negative to date -CBC w/diff and CMP in morning -Ceftriaxone 2gm IV q24h and Azithromycin 500mg IV q24h, both for four more days. -repeat CXR before discharge per radiology concern as above. -encourage fluid intake and ambulation -- Ordered a CTA PE protocol due to elevated d-dimer at the time of admission and, not enough improvement in patient's status: Based on the results we will consider advancing antibiotics. -- Robitussin albuterol ordered Hyponatremia, acute, POA -2/2 hypovolemia -Resolved 2. Leukocytosis, POA, secondary to infection with CAP -CBC again in am. -- Ordered pro-calcitonin and respiratory panel 3. Elevated D-Dimer of 2.66, POA. Wells score of 3 indicating 16 percent chance of PE. -CTA for PE is ordered 4. Acute low back pain with sciatica and right sided foot drop, POA. Patient has had MRI and does have an appointment with an orthopedic surgeon -Percocet 10-325mg q4h PO PRN for pain 5. Anxiety, POA. Patient has Lorazepam 1-2mg PO TID PRN -continue home medication 6. Hypertension, POA. -continue home Metoprolol XL 100mg PO daily. PRN medications for nausea, heartburn, and constipation: ondansetron, maalox, senna, miralax. VTE Prophylaxis: Sub-Q Heparin (Unfractionated) VTE Mechanical Devices: Intermittant Pneumatic CD Resuscitation Status: CPR: Attempt Resuscitation Belle Rodriguez DO Sep 09, 2016 18:00
[2016-09-09] MEDS: cefTRIAXone Inj 2,000 MG in Dextrose 5% Minibag Plus 50 ML IV SCH (22:45)
[2016-09-10] MEDS: Heparin 5,000 Unit/mL Inj SUBQ SCH ×3 (00:39→16:18)
[2016-09-10] MEDS: Codeine-guaiFENesin 10 mL Syrup PO PRN ×3 (02:44→20:59)
[2016-09-10] MEDS: oxyCODONE-Acetamin 5-325 mg Tablet PO SCH ×6 (02:44→22:19)
--- NOTE | 2016-09-10 03:12 | NUR ---
Cough/ Pain Pt. has been complaining of pain and cough throughout shift. Percocet and Robitussin w/ codeine given with some relief. Will continue to monitor.
[2016-09-10 05:22] VITALS: BP 125/78; PULSE 64; RESP 18; O2SAT 98
[2016-09-10 06:42] LABS: Mean Corpuscular Volume 93.3 fL (81-100)
[2016-09-10] MEDS: Sodium Chloride LOK Flush 10 mL Syringe IVFLUSH SCH ×3 (08:09→22:19)
[2016-09-10] MEDS: MeTOProlol XL 50 mg ER24 Tablet PO SCH (08:09)
[2016-09-10] MEDS: levoFLOXacin Inj 750 MG in IV Premix 1 EACH IV SCH (09:34)
[2016-09-10 11:32] VITALS: BP 142/83; PULSE 93; RESP 18; O2SAT 97
--- NOTE | 2016-09-10 15:47 | NUR ---
spiritual care: pt request pt reflected on personal/spiritual distress, and relation to medical events. pt articutlate, wanting encouragement for some action steps he's been considering for better emotional health, stronger relationships and deepter spirituality. prayer.
--- NOTE | 2016-09-10 16:51 | NUR ---
Respiratory therapy RT at bed side for PRN albuterol treatment for shortness of breath.
[2016-09-10] MEDS: Albuterol 2.5 mg/3 mL Inhalation Solution NEB PRN ×2 (17:06→22:58)
[2016-09-10 17:08] VITALS: PULSE 88; RESP 16; O2SAT 95
[2016-09-10 17:46] VITALS: BP 149/86; PULSE 92; RESP 18; O2SAT 97
[2016-09-10 19:36] VITALS: BP 155/70; PULSE 100; RESP 20; O2SAT 96
--- NOTE | 2016-09-10 20:56 | PCM.PNMED ---
Subjective Date of Service Sep 10, 2016 Subjective Patient is seen and examined. He states that he had a rough night, did not receive any breathing treatments. States that his sciatica pain is worse over his left foot and ankle. Cough is keeping him up at night. Exam Vital Signs Vital Sign - Last Date Time Temp Pulse Resp B/P Pulse Ox O2 Delivery O2 Flow Rate FiO2 09/10/16 05:22 36.6 64 18 125/78 98 Room Air 09/08/16 05:50 2.00 Intake and Output 09/09/16 09/09/16 09/10/16 Cumulative From/Thru 15:00 23:00 07:00 09/07/16 20:54 - 09/10/16 05:22 Intake Total 1760 ml 5915 ml Output Total 250 ml Balance 1760 ml 5665 ml Intake Oral 1760 ml 4110 ml IV Total 0 ml 1805 ml Output Urine Total 250 ml # Voids 4 9 # Bowel Movements 0 Exam General: NAD, laying in bed, some what dyspneic male HEENT: NCAT, poor dentition Eyes: [place] conjunctivae. No ptosis, PERRL Neck: No masses, trachea midline, no thyromegaly Lungs: lungs diminished mild wheezings CV: RRR, no murmurs/rubs/gallops, normal PMI GI: Soft, non-tender with no hepatosplenomegaly Skin: Warm and dry. Psych: A&O X3, with appropriate affect IVs and Medications IV Fluids None Medications Reviewed: Medications were reviewed in detail Lab and Diagnostics Laboratory Tests Test 09/10/16 05:57 White Blood Count 15.2th/mm3 (3.8-10.1) Red Blood Count 4.03mil/mm3 (4.40-5.80) Hemoglobin 11.7g/dL (13.8-17.2) Hematocrit 37.6% (41.0-50.0) Mean Corpuscular Volume 93.3fL (81-100) Mean Corpuscular Hemoglobin 29.0pg (27.0-35.0) Mean Corpuscular Hemoglobin Concent 31.1% (32.0-37.0) Red Cell Distribution Width 14.4% (12.3-15.4) Platelet Count 295bil/L (150-400) Sodium Level 134mEq/L (134-144) Potassium Level 4.8mEq/L (3.5-5.2) Chloride Level 94mEq/L (97-108) Carbon Dioxide Level 23mmol/L (18-29) Blood Urea Nitrogen 20mg/dL (6-24) Creatinine 0.92mg/dL (0.76-1.27) Estimat Glomerular Filtration Rate 91mL/min (>59) Glucose Level 90mg/dL (60-99) Calcium Level 8.3mg/dL (8.5-10.1) Microbiology 09/07/16 Blood Culture - Preliminary, Resulted No growth at 2 days; culture examined... 09/09/16 Adenovirus DNA (PCR) - Final, Complete Not Detected 09/09/16 Coronavirus 229E PCR - Final, Complete Not Detected 09/09/16 Coronavirus HKU1 PCR - Final, Complete Not Detected 09/09/16 Coronavirus NL63 PCR - Final, Complete Not Detected 09/09/16 Coronavirus OC43 PCR - Final, Complete Not Detected 09/09/16 Influenza Type A (PCR) - Final, Complete Not Detected 09/09/16 Influenza Type B (PCR) - Final, Complete Not Detected 09/09/16 Human Metapneumovirus (PCR) (MARTIN) - Final, Complete Not Detected 09/09/16 Rhinovirus (PCR)(MARTIN) - Final, Complete Not Detected 09/09/16 Parainfluenza Virus Type 1 (PCR) - Final, Complete Not Detected 09/09/16 Parainfluenza Virus Type 2 (PCR) - Final, Complete Not Detected 09/09/16 Parainfluenza Virus Type 3 (PCR) - Final, Complete Not Detected 09/09/16 Parainfluenza Virus Type 4 (NAAT) - Final, Complete Not Detected 09/09/16 Respiratory Syncytial Virus (PCR)OH - Final, Complete Not Detected 09/09/16 Chlamydia pneumoniae (PCR) - Final, Complete Not Detected 09/09/16 Mycoplasma pneumoniae DNA Detection - Final, Complete 09/08/16 Streptococcus pneumoniae Ag Screen - Final, Complete Result Diagram: 09/09/16 0540 09/09/16 0540 Microbiology Blood and Sputum cultures pending X-Rays, CTs and MRIs CXR IMPRESSION: Dense pneumonia right upper lobe, both anteriorly and within what appears to be the superior segment right lower lobe. This is best seen on the lateral view. It is unlikely that a mass lesion has developed since 04/13/16 when the same areas appeared free of active disease but followup plain films after symptoms have improved to ensure that mass lesion is not present is recommended. [facility] Diagnostic Imaging [place] [address] Patient Name: OMAR MATTHEWS MR#: [id number] Location: [facility] Ordering Phys: Belle Rodriguez DO Date of Service: 09/09/161800 PROCEDURE: CT ANGIO CHEST PULMONARY EMBOLISM ([id number]) INDICATIONS: dyspnea TECHNIQUE: After the administration of intravenous contrast, 2 mm thick sections acquired from the pulmonary apices to the posterior costophrenic angles. 3-dimensional maximum intensity projection (MIP) coronal and sagittal reformats were then acquired through the thorax. For radiation dose reduction, the following was used: automated exposure control, adjustment of mA and/or kV according to patient size. COMPARISON: [facility], CR, XR CHEST 2VW, 09/07/2016, 21:43. FINDINGS: Image quality: Excellent. Pulmonary arteries: Pulmonary arteries are normal in size, and demonstrate no intraluminal filling defects to suggest central pulmonary embolism. Lungs and pleura: There are prominent right greater than left areas of consolidation and patchy density in both lungs consistent with extensive pneumonia. Compared to the chest x-ray of the previous 2 days the pneumonia is thought to have worsened.. No pleural effusions or pneumothorax. Central and peripheral airways are patent. Mediastinum: Heart size is normal, without pericardial effusion. No mediastinal or hilar adenopathy. Thoracic aorta is normal in caliber and enhancement. Esophagus is normal in caliber, without hiatal hernia. Bones and chest wall: No suspicious bony lesions. Ribs and thoracic spine appear intact throughout. Thyroid gland is within normal limits.. No axillary or supraclavicular adenopathy. Abdomen: Visualized upper abdominal solid organs appear normal in the early arterial phase of enhancement. IMPRESSION: No evidence for pulmonary embolus. Extensive pneumonia as seen on the chest x-ray of 09/07/16. Allowing for differences in technique the pneumonia is felt to be slightly worse currently than on the previous chest x-ray because of involvement of portions of the left lung as well the Dictated by: Bebo Paniagua M.D. on 09/09/2016 at 18:35 Approved by: Bebo Paniagua M.D. on 09/09/2016 at 18:39 12-lead ECG NSR Assessment & Plan 51yo man with community acquired pneumonia: cough, fevers, lower right sided chest pain worsening over four days. Immobility and prednisone treatments for new low back pain and sciatica that started4 weeks ago may have made him susceptible to this. 1. Sepsis secondary to Community acquired pneumonia, POA. CXR makes clear suggestion of right sided pneumonia. -legionella and s. pneumo antigens ordered: Negative -MRSA nasal swab pending: Positive - blood and sputum cultures pending: Negative to date -CBC w/diff and CMP in morning -Ceftriaxone 2gm IV q24h and Azithromycin 500mg IV q24h: Switched him to Levaquin for better coverage -repeat CXR before discharge per radiology concern as above. -encourage fluid intake and ambulation -- Ordered a CTA PE protocol due to elevated d-dimer at the time of admission, and lack of improvement in patient's status: CTA PE protocol showed no PE however did show worsened pneumonia now bilateral -- Robitussin, Tessalon Perles, albuterol ordered: Staff is asked to ask RT for breathing treatments -- This patient to PCR panel is ordered and negative Hyponatremia, acute, POA -2/2 hypovolemia -Resolved 2. Leukocytosis, POA, secondary to infection with CAP -CBC again in am. -- Ordered pro-calcitonin and respiratory panel: Pro-calcitonin elevated respiratory panel negative 3. Elevated D-Dimer of 2.66, POA. Wells score of 3 indicating 16 percent chance of PE. -CTA for PE is ordered, negative for PE 4. Acute low back pain with sciatica and right sided foot drop, POA. Patient has had MRI and does have an appointment with an orthopedic surgeon -Percocet 10-325mg q4h PO PRN for pain -- Increased nighttime gabapentin dose to 300 extra -- Physical therapy/OT ordered -- Increased staff to give ketorolac as needed 5. Anxiety, POA. Patient has Lorazepam 1-2mg PO TID PRN -continue home medications 6. Hypertension, POA. -continue home Metoprolol XL 100mg PO daily. PRN medications for nausea, heartburn, and constipation: ondansetron, maalox, senna, miralax. VTE Prophylaxis: Sub-Q Heparin (Unfractionated) VTE Mechanical Devices: Intermittant Pneumatic CD Resuscitation Status: CPR: Attempt Resuscitation Belle Rodriguez DO Sep 10, 2016 05:57
[2016-09-10] MEDS: LORazepam 1 mg Tablet PO PRN (22:19)
[2016-09-10 22:58] VITALS: PULSE 81; RESP 18; O2SAT 94
[2016-09-11] VITALS (7 sets, daily range): BP systolic 104–124; BP diastolic 54–76; PULSE 77–93; RESP 18–20; O2SAT 92–98
--- NOTE | 2016-09-11 00:55 | NUR ---
Cough and Pain Percocet and Toradol given for pain. Robitussin also given for cough. Pt. was short of breath earlier tonight, and RT was called to give a neb treatment. Pt. fell asleep after neb treatment. Care continues.
[2016-09-11] MEDS: Heparin 5,000 Unit/mL Inj SUBQ SCH ×3 (01:29→18:15)
[2016-09-11] MEDS: oxyCODONE-Acetamin 5-325 mg Tablet PO SCH ×6 (02:54→22:17)
[2016-09-11] MEDS: Codeine-guaiFENesin 10 mL Syrup PO PRN ×4 (02:59→22:17)
--- NOTE | 2016-09-11 03:58 | NUR ---
Care Pt. in apparent distress about hospital stay. genetic supervisor called for snack and reassurance.
[2016-09-11] MEDS: Albuterol 2.5 mg/3 mL Inhalation Solution NEB PRN ×2 (05:49→22:52)
[2016-09-11 06:28] LABS: Mean Corpuscular Hemoglobin 28.7 pg (27.0-35.0); Mean Corpuscular Volume 92.9 fL (81-100)
[2016-09-11] MEDS: levoFLOXacin Inj 750 MG in IV Premix 1 EACH IV SCH (09:14)
[2016-09-11] MEDS: Sodium Chloride LOK Flush 10 mL Syringe IVFLUSH SCH ×2 (09:14→18:15)
[2016-09-11] MEDS: MeTOProlol XL 50 mg ER24 Tablet PO SCH (09:14)
[2016-09-11] MEDS: Linezolid Inj 600 MG in IV Premix 1 EACH IV SCH ×2 (11:33→22:12)
--- NOTE | 2016-09-11 12:19 | NUR ---
Social Work-readiness for discharge: Data:EMR Reviewed. Pt is on day 4 of hospitalization for pneumonia per H&P. Pt is not medically stable anticipate 1-2 more days. Pt resides at home with his family. Pt has been up independent in his room. No anticipated discharge needs. SW will continue to follow if needs arise. Assessment:Pt who is independent at baseline. Plan:Pt to discharge home when medically stable via POV. No anticipated discharge needs. SW will continue to follow if needs arise. ZAIDA Lockhart
--- NOTE | 2016-09-11 12:29 | NUR ---
Reviewed case with Pt's nurse. Pt up walking hallways independently. He is being treated for lumbar deficits, sciatica and foot drop by orthopedic surgery on outpatient basis. No inpatient skilled PT needs as Pt is mobile. Recommend he follow up with outpatient ortho regarding sciatica/foot drop and will likely need outpatient physical therapy once lumbar spine is medically stable.
--- NOTE | 2016-09-11 13:56 | NUR ---
Mobility/Fatigue/Pain Patient reports increased SOB with exertion. Becomes easily fatigued when up ambulating, requiring intermittent rest periods. Up independently in room. Reports increased pain in chest, ribs, abdomen, and back with constant coughing. Administered IV Toradol, Scheduled Percocet, Tessalon pearls.
[2016-09-11] MEDS: TerBINafine 1% 15 Gm Cream TOPICAL SCH ×2 (14:20→22:18)
--- NOTE | 2016-09-11 15:02 | DRSVH ---
PROCEDURE: X-RAY RIGHT RIBS INCLUDEING PA CHEST, MINUMUM THREE VIEWS ([id number]) INDICATIONS: rib pain TECHNIQUE: 4 views of the right ribs were acquired, along with a single view chest. COMPARISON: [facility], CT, CT ANGIO CHEST PE, 09/09/2016, 18:23. [facility] , CR, XR CHEST 2VW, 09/07/2016, 21:43. [facility], CR, RIBS BILAT WITH CXR MIN 4 VIEW, 6, 13:09. FINDINGS: Surgical changes and devices: None. Bones and chest wall: No fractures or dislocations. No suspicious bony lesions. Overlying soft tis sues appear unremarkable. Lungs and pleura: No pleural effusions or pneumothorax, and the previously present pneumonia which i s quite dense has improved within the right mid lung both anteriorly and posteriorly. Lungs appear c lear. Mediastinum: Mediastinal contours appear normal. Heart size is normal. IMPRESSION: Improving pneumonia at the right mid lung both anteriorly and posteriorly. This pneumon ia extends to the pleural surface, and this may induce chest wall pain. No fracture or underlying em pyema suspected. Dictated by: Tyrese Garcia M.D. on 09/11/2016 at 14:59 Approved by: Tyrese Garcia M.D. on 09/11/2016 at 15:01
--- NOTE | 2016-09-11 21:05 | PCM.PNMED ---
Subjective Date of Service Sep 11, 2016 Subjective Patient is seen and examined. Patient is feeling better today. Cough is improving. Sputum cultures grew MRSA, patient was started on linezolid IV today. He is complaining of rib pain on the right side. Denies nausea vomiting , poor appetite. Complains of toe nail fungus. Exam Vital Signs Vital Sign - Last Date Time Temp Pulse Resp B/P Pulse Ox O2 Delivery O2 Flow Rate FiO2 09/11/16 05:02 36.8 81 18 124/75 95 Room Air 09/08/16 05:50 2.00 Intake and Output 09/10/16 09/10/16 09/11/16 Cumulative From/Thru 15:00 23:00 07:00 09/07/16 20:54 - 09/10/16 19:25 Intake Total 160 ml 600 ml 7275 ml Output Total 700 ml 950 ml Balance 160 ml -100 ml 6325 ml Intake Oral 600 ml 5310 ml IV Total 160 ml 1965 ml Output Urine Total 700 ml 950 ml # Voids 11 # Bowel Movements 0 Exam General: NAD, laying in bed HEENT: NCAT, poor dentition Eyes: [place] conjunctivae. No ptosis, PERRL Neck: No masses, trachea midline, no thyromegaly CV: RRR, no murmurs/rubs/gallops, normal PMI GI: Soft, non-tender with no hepatosplenomegaly Psych: A&O X3, with approprate affect Neuro: No focal deficits Skin : m warm to touch , Onychomycosis, also between toes. Lungs sound better on the right side than left, no wheezing or crackles Extremities: 1+ edema in legs Abdominal exam showed tenderness in the right upper quadrant, obese abdomen Musculoskeletal tenderness to palpation over the right side ribs IVs and Medications IV Fluids None Medications Reviewed: Medications were reviewed in detail Lab and Diagnostics Laboratory Tests Test 09/11/16 05:40 White Blood Count 13.5th/mm3 (3.8-10.1) Red Blood Count 3.94mil/mm3 (4.40-5.80) Hemoglobin 11.3g/dL (13.8-17.2) Hematocrit 36.6% (41.0-50.0) Mean Corpuscular Volume 92.9fL (81-100) Mean Corpuscular Hemoglobin 28.7pg (27.0-35.0) Mean Corpuscular Hemoglobin Concent 30.9% (32.0-37.0) Red Cell Distribution Width 14.2% (12.3-15.4) Platelet Count 326bil/L (150-400) Sodium Level 136mEq/L (134-144) Potassium Level 5.6mEq/L (3.5-5.2) Chloride Level 94mEq/L (97-108) Carbon Dioxide Level 28mmol/L (18-29) Blood Urea Nitrogen 19mg/dL (6-24) Creatinine 0.93mg/dL (0.76-1.27) Estimat Glomerular Filtration Rate 90mL/min (>59) Glucose Level 134mg/dL (60-99) Calcium Level 8.6mg/dL (8.5-10.1) Procalcitonin 0.28ng/mL (0.00-0.08) Microbiology 09/07/16 Blood Culture - Preliminary, Resulted No growth at 2 days; culture examined... 09/09/16 Adenovirus DNA (PCR) - Final, Complete Not Detected 09/09/16 Coronavirus 229E PCR - Final, Complete Not Detected 09/09/16 Coronavirus HKU1 PCR - Final, Complete Not Detected 09/09/16 Coronavirus NL63 PCR - Final, Complete Not Detected 09/09/16 Coronavirus OC43 PCR - Final, Complete Not Detected 09/09/16 Influenza Type A (PCR) - Final, Complete Not Detected 09/09/16 Influenza Type B (PCR) - Final, Complete Not Detected 09/09/16 Human Metapneumovirus (PCR) (MARTIN) - Final, Complete Not Detected 09/09/16 Rhinovirus (PCR)(MARTIN) - Final, Complete Not Detected 09/09/16 Parainfluenza Virus Type 1 (PCR) - Final, Complete Not Detected 09/09/16 Parainfluenza Virus Type 2 (PCR) - Final, Complete Not Detected 09/09/16 Parainfluenza Virus Type 3 (PCR) - Final, Complete Not Detected 09/09/16 Parainfluenza Virus Type 4 (NAAT) - Final, Complete Not Detected 09/09/16 Respiratory Syncytial Virus (PCR)RI - Final, Complete Not Detected 09/09/16 Chlamydia pneumoniae (PCR) - Final, Complete Not Detected 09/09/16 Mycoplasma pneumoniae DNA Detection - Final, Complete 09/08/16 Streptococcus pneumoniae Ag Screen - Final, Complete Result Diagram: 09/10/16 0557 09/10/16 0557 Microbiology Blood and Sputum cultures pending X-Rays, CTs and MRIs CXR IMPRESSION: Dense pneumonia right upper lobe, both anteriorly and within what appears to be the superior segment right lower lobe. This is best seen on the lateral view. It is unlikely that a mass lesion has developed since 04/13/16 when the same areas appeared free of active disease but followup plain films after symptoms have improved to ensure that mass lesion is not present is recommended. [facility] Diagnostic [place] [address] Patient Name: OMAR MATTHEWS MR#: [id number] [place] [facility] [place]ing Phys: Belle Rodriguez DO Date of Service: 09/09/16 1801 PROCEDURE: CT ANGIO CHEST PULMONARY EMBOLISM ([id number]) INDICATIONS: dyspnea TECHNIQUE: After the administration of intravenous contrast, 2 mm thick sections acquired from the pulmonary apices to the posterior costophrenic angles. 3-dimensional maximum intensity projection (MIP) coronal and sagittal reformats were then acquired through the thorax. For radiation dose reduction, the following was used: automated exposure control, adjustment of mA and/or kV according to patient size. COMPARISON: [facility], CR, XR CHEST 2VW, 09/07/2016, 21:43. FINDINGS: Image quality: Excellent. Pulmonary arteries: Pulmonary arteries are normal in size, and demonstrate no intraluminal filling defects to suggest central pulmonary embolism. Lungs and pleura: There are prominent right greater than left areas of consolidation and patchy density in both lungs consistent with extensive pneumonia. Compared to the chest x-ray of the previous 2 days the pneumonia is thought to have worsened.. No pleural effusions or pneumothorax. Central and peripheral airways are patent. Mediastinum: Heart size is normal, without pericardial effusion. No mediastinal or hilar adenopathy. Thoracic aorta is normal in caliber and enhancement. Esophagus is normal in caliber, without hiatal hernia. Bones and chest wall: No suspicious bony lesions. Ribs and thoracic spine appear intact throughout. Thyroid gland is within normal limits.. No axillary or supraclavicular adenopathy. Abdomen: Visualized upper abdominal solid organs appear normal in the early arterial phase of enhancement. IMPRESSION: No evidence for pulmonary embolus. Extensive pneumonia as seen on the chest x-ray of 09/07/16. Allowing for differences in technique the pneumonia is felt to be slightly worse currently than on the previous chest x-ray because of involvement of portions of the left lung as well the Dictated by: Bebo Paniagua M.D. on 09/09/2016 at 18:35 Approved by: Bebo Paniagua M.D. on 09/09/2016 at 18:39 12-lead ECG NSR Assessment & Plan 51yo man with community acquired pneumonia: cough, fevers, lower right sided chest pain worsening over four days. Immobility and prednisone treatments for new low back pain and sciatica that started4 weeks ago may have made him susceptible to this. 1. Sepsis secondary to Community acquired pneumonia, POA. CXR makes clear suggestion of right sided pneumonia. -legionella and s. pneumo antigens ordered: Negative -MRSA nasal swab pending: Positive - blood and sputum cultures pending: Negative to date -CBC w/diff and CMP in morning -Ceftriaxone 2gm IV q24h and Azithromycin 500mg IV q24h: Switched him to Levaquin for better coverage -repeat CXR before discharge per radiology concern as above. -encourage fluid intake and ambulation -- Ordered a CTA PE protocol due to elevated d-dimer at the time of admission, and lack of improvement in patient's status: CTA PE protocol showed no PE however did show worsened pneumonia now bilateral -- Robitussin, Tessalon Perles, albuterol ordered: Staff is asked to ask RT for breathing treatments -- This patient to PCR panel is ordered and negative -- 09/11 improving pro-calcitonin -- Added linezolid today as sputum had MRSA growing, CTA also showed worsened pneumonia yesterday. A follow-up rib x-ray today showed improving pneumonia 2: Hyponatremia, acute, POA -2/2 hypovolemia -Resolved 3. Leukocytosis, POA, secondary to infection with CAP -CBC again in am. -- Ordered pro-calcitonin and respiratory panel: Pro-calcitonin elevated respiratory panel negative -- Improving 4. Elevated D-Dimer of 2.66, POA. Wells score of 3 indicating 16 percent chance of PE. -CTA for PE is ordered, negative for PE 5. Acute low back pain with sciatica and right sided foot drop, POA. Patient has had MRI and does have an appointment with an orthopedic surgeon -Percocet 10-325mg q4h PO PRN for pain -- Increased nighttime gabapentin dose to 300 extra -- Physical therapy/OT ordered -- Increased staff to give ketorolac as needed 6. Anxiety, POA. Patient has Lorazepam 1-2mg PO TID PRN -continue home medications 7. Hypertension, POA. -continue home Metoprolol XL 100mg PO daily. 8 onychomycosis/ foot fungal infection, chronic POA: Terbinafine cream is ordered 8. Rib pain, acute visit admission: Right rib x-rays ordered- no fractures 9. Hyperkalemia: Albuterol treatments are initiated last night, he says is asking for them regularly this should help with the potassium. Kayexalate by mouth 5 g was given. Follow-up labs this evening at 4 PM. Urine Showed normalized potassium PRN medications for nausea, heartburn, and constipation: ondansetron, maalox, senna, miralax. Pain Evaluation: Adequate Pain Control VTE Prophylaxis: Sub-Q Heparin (Unfractionated) VTE Mechanical Devices: Intermittant Pneumatic CD Resuscitation Status: CPR: Attempt Resuscitation Belle Rodriguez DO Sep 11, 2016 05:43
[2016-09-11] MEDS: LORazepam 1 mg Tablet PO PRN (22:17)
[2016-09-12] MEDS: Sodium Chloride LOK Flush 10 mL Syringe IVFLUSH SCH ×3 (00:06→16:17)
[2016-09-12] MEDS: Heparin 5,000 Unit/mL Inj SUBQ SCH ×3 (00:07→16:18)
[2016-09-12] MEDS: oxyCODONE-Acetamin 5-325 mg Tablet PO SCH ×4 (02:00→14:02)
[2016-09-12] MEDS: LORazepam 1 mg Tablet PO PRN ×2 (04:01→22:07)
--- NOTE | 2016-09-12 04:05 | NUR ---
Anxiety/Respiratory Pt. has declined to be woken up for pain meds throughout night. Pt. has slept throughout most of the night. Pt. reports ativan PO effective for anxiety. Pt. did request one neb treatment given by RT. Pt. has intermittent coughing, but has less noticeable wheezing in lung sounds. Will continue to monitor.
[2016-09-12 06:07] VITALS: BP 148/76; PULSE 58; RESP 20; O2SAT 95
[2016-09-12 06:51] LABS: Mean Corpuscular Hemoglobin 28.8 pg (27.0-35.0); Mean Corpuscular Volume 93.7 fL (81-100)
[2016-09-12] MEDS ORDERED: 0.9% Sodium Chloride 1,000 ML IV SCH (07:50)
[2016-09-12] MEDS: MeTOProlol XL 50 mg ER24 Tablet PO SCH (09:07)
[2016-09-12] MEDS: TerBINafine 1% 15 Gm Cream TOPICAL SCH ×3 (09:09→20:46)
[2016-09-12] MEDS: Linezolid Inj 600 MG in IV Premix 1 EACH IV SCH ×2 (09:16→20:45)
[2016-09-12] MEDS: oxyCODONE-Acetamin 10-325 mg Tablet PO PRN (10:16)
[2016-09-12] MEDS: levoFLOXacin Inj 750 MG in IV Premix 1 EACH IV SCH (10:29)
[2016-09-12 14:08] VITALS: BP 121/81; PULSE 69; RESP 19; O2SAT 98
[2016-09-12 15:09] VITALS: PULSE 95; RESP 16; O2SAT 93
--- NOTE | 2016-09-12 17:49 | NUR ---
respiratory status patient reports breathing easier today. denies SOB at rest. mild FERRER when up walking. patient has been independent in room. pleuritic pain associated with coughing improved today as well, per patient report. encouraged increased mobility, DB&C exercises. continue to monitor.
[2016-09-12] MEDS ORDERED: oxyCODONE-Acetamin 5-325 mg Tablet PO PRN (18:00)
[2016-09-12 20:30] VITALS: BP 123/70; PULSE 95; RESP 20; O2SAT 98
[2016-09-12 21:39] VITALS: PULSE 93; RESP 16; O2SAT 94
[2016-09-12] MEDS: Albuterol 2.5 mg/3 mL Inhalation Solution NEB PRN (21:39)
--- NOTE | 2016-09-12 21:41 | PCM.PNMED ---
Subjective Date of Service Sep 12, 2016 Subjective Patient is seen and examined. He is feeling much better. Has not taken much pain medication in the last 24 hours compared to before that. He states that he had no fevers or chills, is tolerating diet. He says that his numbness in his right leg has been helped by increased dose of gabapentin. Patient states he has had a DVT ultrasound done on the right lower extremity a month ago at an outside hospital that ruled out DVT Exam Vital Signs Vital Sign - Last Date Time Temp Pulse Resp B/P Pulse Ox O2 Delivery O2 Flow Rate FiO2 09/12/16 00:32 Supplement Oxygen 09/11/16 22:52 90 18 94 09/11/16 20:41 36.9 104/54 09/08/16 05:50 2.00 Intake and Output 09/11/16 09/11/16 09/12/16 Cumulative From/Thru 15:00 23:00 07:00 09/07/16 20:54 - 09/12/16 00:32 Intake Total 1148 ml 9223 ml Output Total 950 ml Balance 1148 ml 8273 ml Intake Oral 1148 ml 7258 ml IV Total 1965 ml Output Urine Total 950 ml # Voids 3 16 # Bowel Movements 1 1 Exam General: NAD, sitting up in bed talking on the phone HEENT: NCAT, poor dentition Eyes: [place] conjunctivae. No ptosis Neck: No masses, trachea midline, no thyromegaly Lungs: Diminished right greater than left, no crackles or wheezes CV: RRR, no murmurs/rubs/gallops GI: Soft, obese, nondistended Extremities: Right lower leg does appear to be more swollen and warmer than the left one. However he does look improved from yesterday Skin: Warm and dry. Psych: A&O X3, with appropriate affect IVs and Medications Medications Reviewed: Medications were reviewed in detail Lab and Diagnostics Laboratory Tests Test 09/12/16 06:05 White Blood Count 13.3th/mm3 (3.8-10.1) Red Blood Count 3.78mil/mm3 (4.40-5.80) Hemoglobin 10.9g/dL (13.8-17.2) Hematocrit 35.4% (41.0-50.0) Mean Corpuscular Volume 93.7fL (81-100) Mean Corpuscular Hemoglobin 28.8pg (27.0-35.0) Mean Corpuscular Hemoglobin Concent 30.8% (32.0-37.0) Red Cell Distribution Width 14.5% (12.3-15.4) Platelet Count 390bil/L (150-400) Sodium Level 137mEq/L (134-144) Potassium Level 5.4mEq/L (3.5-5.2) Chloride Level 97mEq/L (97-108) Carbon Dioxide Level 28mmol/L (18-29) Blood Urea Nitrogen 18mg/dL (6-24) Creatinine 0.96mg/dL (0.76-1.27) Estimat Glomerular Filtration Rate 87mL/min (>59) Glucose Level 139mg/dL (60-99) Calcium Level 8.6mg/dL (8.5-10.1) Total Bilirubin 0.3mg/dL (0.0-1.2) Aspartate Amino Transf (AST/SGOT) 47U/L (0-50) Alanine Aminotransferase (ALT/SGPT) 61U/L (0-44) Alkaline Phosphatase 85U/L (25-150) Total Protein 6.0g/dL (6.4-8.4) Albumin 3.0g/dL (3.4-5.0) Microbiology 09/07/16 Blood Culture - Preliminary, Resulted No growth at 2 days; culture examined... 09/09/16 Adenovirus DNA (PCR) - Final, Complete Not Detected 09/09/16 Coronavirus 229E PCR - Final, Complete Not Detected 09/09/16 Coronavirus HKU1 PCR - Final, Complete Not Detected 09/09/16 Coronavirus NL63 PCR - Final, Complete Not Detected 09/09/16 Coronavirus OC43 PCR - Final, Complete Not Detected 09/09/16 Influenza Type A (PCR) - Final, Complete Not Detected 09/09/16 Influenza Type B (PCR) - Final, Complete Not Detected 09/09/16 Human Metapneumovirus (PCR) (MARTIN) - Final, Complete Not Detected 09/09/16 Rhinovirus (PCR)(MARTIN) - Final, Complete Not Detected 09/09/16 Parainfluenza Virus Type 1 (PCR) - Final, Complete Not Detected 09/09/16 Parainfluenza Virus Type 2 (PCR) - Final, Complete Not Detected 09/09/16 Parainfluenza Virus Type 3 (PCR) - Final, Complete Not Detected 09/09/16 Parainfluenza Virus Type 4 (NAAT) - Final, Complete Not Detected 09/09/16 Respiratory Syncytial Virus (PCR)MN - Final, Complete Not Detected 09/09/16 Chlamydia pneumoniae (PCR) - Final, Complete Not Detected 09/09/16 Mycoplasma pneumoniae DNA Detection - Final, Complete 09/08/16 Streptococcus pneumoniae Ag Screen - Final, Complete Result Diagram: 09/11/16 0540 09/11/16 2130 Microbiology Blood and Sputum cultures showed no growth to date X-Rays, CTs and MRIs [facility] Diagnostic Imaging Department [place], [place] [id number] Patient Name: OMAR MATTHEWS MR#: [id number] [place] [facility] [place] Phys: Belle Rodriguez DO Date of Service: 09/11/16 1406 PROCEDURE: X-RAY RIGHT RIBS INCLUDEING PA CHEST, MINUMUM THREE VIEWS ([id number]) INDICATIONS: rib pain TECHNIQUE: 4 views of the right ribs were acquired, along with a single view chest. COMPARISON: [facility], CT, CT ANGIO CHEST PE, 09/09/2016, 18:23. [facility], CR, XR CHEST 2VW, 09/07/2016, 21:43. [facility], CR , RIBS BILAT WITH CXR MIN 4 VIEW, 04/14/2016, 13:09. FINDINGS: Surgical changes and devices: None. Bones and chest wall: No fractures or dislocations. No suspicious bony lesions. Overlying soft tissues appear unremarkable. Lungs and pleura: No pleural effusions or pneumothorax, and the previously present pneumonia which is quite dense has improved within the right mid lung both anteriorly and posteriorly. Lungs appear clear. Mediastinum: Mediastinal contours appear normal. Heart size is normal. IMPRESSION: Improving pneumonia at the right mid lung both anteriorly and posteriorly. This pneumonia extends to the pleural surface, and this may induce chest wall pain. No fracture or underlying empyema suspected. Dictated by: Tyrese Garcia M.D. on 09/11/2016 at 14:59 Approved by: Tyrese Garcia M.D. on 09/11/2016 at 15:01 CXR IMPRESSION: Dense pneumonia right upper lobe, both anteriorly and within what appears to be the superior segment right lower lobe. This is best seen on the lateral view. It is unlikely that a mass lesion has developed since 04/13/16 when the same areas appeared free of active disease but followup plain films after symptoms have improved to ensure that mass lesion is not present is recommended. [facility] Diagnostic Imaging [place] [address] Patient Name: OMAR MATTHEWS MR#: [id number] Location: [facility] Ordering Phys: Rodriguez, Belle Valencia Date of Service: 09/09/16 1801 PROCEDURE: CT ANGIO CHEST PULMONARY EMBOLISM ([id number]) INDICATIONS: dyspnea TECHNIQUE: After the administration of intravenous contrast, 2 mm thick sections acquired from the pulmonary apices to the posterior costophrenic angles. 3-dimensional maximum intensity projection (MIP) coronal and sagittal reformats were then acquired through the thorax. For radiation dose reduction, the following was used: automated exposure control, adjustment of mA and/or kV according to patient size. COMPARISON: [facility], CR, XR CHEST 2VW, 09/07/2016, 21:43. FINDINGS: Image quality: Excellent. Pulmonary arteries: Pulmonary arteries are normal in size, and demonstrate no intraluminal filling defects to suggest central pulmonary embolism. Lungs and pleura: There are prominent right greater than left areas of consolidation and patchy density in both lungs consistent with extensive pneumonia. Compared to the chest x-ray of the previous 2 days the pneumonia is thought to have worsened.. No pleural effusions or pneumothorax. Central and peripheral airways are patent. Mediastinum: Heart size is normal, without pericardial effusion. No mediastinal or hilar adenopathy. Thoracic aorta is normal in caliber and enhancement. Esophagus is normal in caliber, without hiatal hernia. Bones and chest wall: No suspicious bony lesions. Ribs and thoracic spine appear intact throughout. Thyroid gland is within normal limits.. No axillary or supraclavicular adenopathy. Abdomen: Visualized upper abdominal solid organs appear normal in the early arterial phase of enhancement. IMPRESSION: No evidence for pulmonary embolus. Extensive pneumonia as seen on the chest x-ray of 09/07/16. Allowing for differences in technique the pneumonia is felt to be slightly worse currently than on the previous chest x-ray because of involvement of portions of the left lung as well the Dictated by: Bebo Paniagua M.D. on 09/09/2016 at 18:35 Approved by: Bebo Paniagua M.D. on 09/09/2016 at 18:39 12-lead ECG NSR Assessment & Plan 51yo man with community acquired pneumonia: cough, fevers, lower right sided chest pain worsening over four days. Immobility and prednisone treatments for new low back pain and sciatica that started4 weeks ago may have made him susceptible to this. 1. Sepsis secondary to Community acquired pneumonia, POA. CXR makes clear suggestion of right sided pneumonia. -legionella and s. pneumo antigens ordered: Negative -MRSA nasal swab pending: Positive - blood and sputum cultures pending: Negative to date -CBC w/diff and CMP in morning -Ceftriaxone 2gm IV q24h and Azithromycin 500mg IV q24h: Switched him to Levaquin for better coverage -repeat CXR before discharge per radiology concern as above. -encourage fluid intake and ambulation -- Ordered a CTA PE protocol due to elevated d-dimer at the time of admission, and lack of improvement in patient's status: CTA PE protocol showed no PE however did show worsened pneumonia now bilateral -- Robitussin, Tessalon Perles, albuterol ordered: Staff is asked to ask RT for breathing treatments -- This patient to PCR panel is ordered and negative -- 09/11 improving pro-calcitonin -- Added linezolid as sputum had MRSA growing 09/11, CTA also showed worsened pneumonia on 09/10. A follow-up rib x-ray today showed improving pneumonia on 09/11 -- Plan to discharge patient home on 7 days total of linezolid and Levaquin for pneumonia 2: Hyponatremia, acute, POA -2/2 hypovolemia -Resolved 3. Leukocytosis, POA, secondary to infection with CAP -CBC again in am. -- Ordered pro-calcitonin and respiratory panel: Pro-calcitonin elevated respiratory panel negative -- Improving 4. Elevated D-Dimer of 2.66, POA. Wells score of 3 indicating 16 percent chance of PE. -CTA for PE is ordered, negative for PE -- DVT ultrasound of the right leg is ordered for tomorrow a.m. 5 Swollen and erythematous right leg: DVT ultrasound ordered for tomorrow a.m. 5. Acute low back pain with sciatica and right sided foot drop, POA. Patient has had MRI and does have an appointment with an orthopedic surgeon -Percocet 10-325mg q4h PO PRN for pain -- Increased nighttime gabapentin dose to 300 extra -- Physical therapy/OT ordered -- Instructed staff to give ketorolac as needed for pleuritic pain -- Changed pain medication dose to Percocet 5 mg every 4 hours when necessary. From records it appears that he was taking up to 50 mg of pain medication until the day before yesterday however yesterday he only took 15 mg. 7. Anxiety, POA. Patient has Lorazepam 1-2mg PO TID PRN -continue home medications 7. Hypertension, POA. -continue home Metoprolol XL 100mg PO daily. 9 onychomycosis/ foot fungal infection, chronic POA: Terbinafine cream is ordered 10 Rib pain, acute visit admission: Right rib x-rays ordered- no fractures. Encouraged incentive spirometry 11. Hyperkalemia: Albuterol treatments are initiated \. Kayexalate by mouth 5 g was given. Follow-up labs this evening at 4 PM. Normal today, we will continue to monitor PRN medications for nausea, heartburn, and constipation: ondansetron, maalox, senna, miralax. Pain Evaluation: Adequate Pain Control VTE Prophylaxis: Sub-Q Heparin (Unfractionated) VTE Mechanical Devices: Intermittant Pneumatic CD Resuscitation Status: CPR: Attempt Resuscitation Belle Rodriguez DO Sep 12, 2016 05:41
[2016-09-12] MEDS ORDERED: OXYC1TAB24 PO (21:46)
[2016-09-12] MEDS ORDERED: GABA300C PO (21:46)
[2016-09-12] MEDS ORDERED: POLY17PO6 PO (21:46)
[2016-09-12] MEDS ORDERED: BENZ100C8 PO (21:46)
[2016-09-12] MEDS ORDERED: Terbinafine Hcl TOPICAL (21:46)
[2016-09-12] MEDS ORDERED: GABA-502 PO (21:47)
[2016-09-12] MEDS ORDERED: LEVO750T9 PO (21:50)
[2016-09-12] MEDS ORDERED: LINE600T7 PO (21:50)
[2016-09-13] MEDS: Heparin 5,000 Unit/mL Inj SUBQ SCH ×2 (00:46→08:57)
[2016-09-13] MEDS: Sodium Chloride LOK Flush 10 mL Syringe IVFLUSH SCH ×2 (00:47→08:30)
--- NOTE | 2016-09-13 01:14 | NUR ---
CPAP RT [facility] Patient initially began using the machine when first going to sleep. After about an hour patient removed CPAP and stated he didn't want to use it. Patient previously stated that he doesn't regularly use his CPAP at home. Patient A&OX3. One Percocet for pain 10/30. Daughter called at beginning of shift inquiring about father's condition and wanting to know if he would need her to pick him up in the morning if discharged. Daughter was informed that more info would be available in the morning.
[2016-09-13 06:19] LABS: Mean Corpuscular Hemoglobin 28.7 pg (27.0-35.0); Mean Corpuscular Volume 92.6 fL (81-100)
[2016-09-13 06:31] VITALS: BP 147/84; PULSE 89; RESP 20; O2SAT 94
[2016-09-13] MEDS: Linezolid Inj 600 MG in IV Premix 1 EACH IV SCH (08:53)
[2016-09-13] MEDS: MeTOProlol XL 50 mg ER24 Tablet PO SCH (08:56)
[2016-09-13] MEDS: TerBINafine 1% 15 Gm Cream TOPICAL SCH (08:57)
[2016-09-13] MEDS: levoFLOXacin Inj 750 MG in IV Premix 1 EACH IV SCH (09:49)
--- NOTE | 2016-09-13 09:57 | DRSVH ---
PROCEDURE: US VEINOUS LEG DUPLEX UNILATERAL, RIGHT INDICATIONS: redness, swollen TECHNIQUE: Real-time imaging, as well as color and pulse Doppler interrogation, were performed of the lower extr emity deep veins from the inguinal ligament to the popliteal fossa. COMPARISON: None. FINDINGS: The deep veins are normally compressible, and free of intraluminal thrombus. Color and pu lse Doppler demonstrate normal phasic intraluminal flow. There is normal augmentation response to di stal compression maneuver. IMPRESSION: No deep venous thrombosis identified within the right lower extremity. Dictated by: Fernando Araiza Annie Interpreted: Tyrese Garcia MD on 09/13/2016 at 9:56 Transcribed by: NILE on 09/13/2016 at 9:57 Approved by: Tyrese Garcia M.D. on 09/13/2016 at 10:52
[2016-09-13] MEDS ORDERED: LORA-302 PO ×2 (12:18→12:19)
[2016-09-13] MEDS ORDERED: ALBU18HF INH (12:21)
--- NOTE | 2016-09-13 12:26 | PCM.DIMED ---
Discharge Instructions Date of Service Sep 13, 2016 Dates of Hospitalization Sep 07, 2016 at 23:56 Discharge Diagnosis Discharge Diagnosis sepsis secondary to Pneumonia, elevated d-dimer, lowback pain/sciatica, hypertension, anxiety Medication Instructions Please taper down ativan as below. take 0.5 mg PO every other night for a week, then twice a week, then once a week, then stop. Diet Heart Healthy Activity Outpatient Physical Therapy Call your provider Fever or Chills, Shortness of breath, Bleeding, Chest pain, Vomitting, Excessive diarrhea, Other Patient Instructions Follow-up plan Please set up patient with [facility] as he is interested in switching providers. in 7days Please set up outpt PT for his lumbar pain/sciatica for 2 weeks. F/U CBC prior to appt with PCP Belle Rodriguez DO Sep 13, 2016 12:26
--- NOTE | 2016-09-13 12:33 | PCM.DC.MED ---
Discharge Summary Date of Service Sep 13, 2016 Dates of Hospitalization Date of Hospital Admission Sep 07, 2016 at 23:56 Date of Discharge: Sep 13, 2016 Providers: Admitting Physician: Rosa Caretr DO Primary Care Physician: Roc Suarez MD Attending Physician: Rosa Carter DO Diagnosis at Time of Discharge Diagnosis at Time of Discharge sepsis secondary to Pneumonia, elevated d-dimer, lowback pain/sciatica, hypertension, anxiety Consultations Pt/OT Procedures XRay, CTs & MRIs [facility] [place] [address] Patient Name: OMAR MATTHEWS MR#: [id number] Location: [facility] Ordering Phys: Belle Mojica DO Date of Service: 09/11/16 1406 PROCEDURE: X-RAY RIGHT RIBS INCLUDEING PA CHEST, MINUMUM THREE VIEWS ([id number]) INDICATIONS: rib pain TECHNIQUE: 4 views of the right ribs were acquired, along with a single view chest. COMPARISON: [facility], CT, CT ANGIO CHEST PE, 09/09/2016, 18:23. [facility], CR, XR CHEST 2VW, 09/07/2016, 21:43. [facility], CR , RIBS BILAT WITH CXR MIN 4 VIEW, 04/14/2016, 13:09. FINDINGS: Surgical changes and devices: None. Bones and chest wall: No fractures or dislocations. No suspicious bony lesions. Overlying soft tissues appear unremarkable. Lungs and pleura: No pleural effusions or pneumothorax, and the previously present pneumonia which is quite dense has improved within the right mid lung both anteriorly and posteriorly. Lungs appear clear. Mediastinum: Mediastinal contours appear normal. Heart size is normal. IMPRESSION: Improving pneumonia at the right mid lung both anteriorly and posteriorly. This pneumonia extends to the pleural surface, and this may induce chest wall pain. No fracture or underlying empyema suspected. Dictated by: Tyrese Garcia M.D. on 09/11/2016 at 14:59 Approved by: Tyrese Garcia M.D. on 09/11/2016 at 15:01 CXR IMPRESSION: Dense pneumonia right upper lobe, both anteriorly and within what appears to be the superior segment right lower lobe. This is best seen on the lateral view. It is unlikely that a mass lesion has developed since 04/13/16 when the same areas appeared free of active disease but followup plain films after symptoms have improved to ensure that mass lesion is not present is recommended. [facility] Diagnostic Imaging Department [place], [place] [id number] Patient Name: OMAR MATTHEWS MR#: [id number] Location: [facility] [place] Ordering Phys: Belle Mojica Date of Service: 09/09/161800 PROCEDURE: CT ANGIO CHEST PULMONARY EMBOLISM ([id number]) INDICATIONS: dyspnea TECHNIQUE: After the administration of intravenous contrast, 2 mm thick sections acquired from the pulmonary apices to the posterior costophrenic angles. 3-dimensional maximum intensity projection (MIP) coronal and sagittal reformats were then acquired through the thorax. For radiation dose reduction, the following was used: automated exposure control, adjustment of mA and/or kV according to patient size. COMPARISON: [facility], CR, XR CHEST 2VW, 09/07/2016, 21:43. FINDINGS: Image quality: Excellent. Pulmonary arteries: Pulmonary arteries are normal in size, and demonstrate no intraluminal filling defects to suggest central pulmonary embolism. Lungs and pleura: There are prominent right greater than left areas of consolidation and patchy density in both lungs consistent with extensive pneumonia. Compared to the chest x-ray of the previous 2 days the pneumonia is thought to have worsened.. No pleural effusions or pneumothorax. Central and peripheral airways are patent. Mediastinum: Heart size is normal, without pericardial effusion. No mediastinal or hilar adenopathy. Thoracic aorta is normal in caliber and enhancement. Esophagus is normal in caliber, without hiatal hernia. Bones and chest wall: No suspicious bony lesions. Ribs and thoracic spine appear intact throughout. Thyroid gland is within normal limits.. No axillary or supraclavicular adenopathy. Abdomen: Visualized upper abdominal solid organs appear normal in the early arterial phase of enhancement. IMPRESSION: No evidence for pulmonary embolus. Extensive pneumonia as seen on the chest x-ray of 09/07/16. Allowing for differences in technique the pneumonia is felt to be slightly worse currently than on the previous chest x-ray because of involvement of portions of the left lung as well the Dictated by: Bebo Paniagua M.D. on 09/09/2016 at 18:35 Approved by: Bebo Paniagua M.D. on 09/09/2016 at 18:39 ECG 12 Lead NSR Brief History 51yo man with distant history of prostate cancer s/p resection, recent work injury of low back resulting in right sided sciatica and right foot drop presents with subjective intermittent fevers, non-productive cough, and lower right sided chest pain worsening over the last four days. He has been somewhat immobilized and on prednisone x3 for his back injury which he believes may have led to his being susceptible to this likely pneumonia. Hospital Course 51yo man with community acquired pneumonia: cough, fevers, lower right sided chest pain worsening over four days. Immobility and prednisone treatments for new low back pain and sciatica that started4 weeks ago may have made him susceptible to this. 1. Sepsis secondary to Community acquired pneumonia, POA. CXR makes clear suggestion of right sided pneumonia. -legionella and s. pneumo antigens ordered: Negative -MRSA nasal swab pending: Positive - blood and sputum cultures pending: Negative to date -CBC w/diff and CMP in morning -Ceftriaxone 2gm IV q24h and Azithromycin 500mg IV q24h: Switched him to Levaquin for better coverage -repeat CXR before discharge per radiology concern as above. -encourage fluid intake and ambulation -- Ordered a CTA PE protocol due to elevated d-dimer at the time of admission, and lack of improvement in patient's status: CTA PE protocol showed no PE however did show worsened pneumonia now bilateral -- Robitussin, Tessalon Perles, albuterol ordered: Staff is asked to ask RT for breathing treatments -- This patient to PCR panel is ordered and negative -- 09/11 improving pro-calcitonin -- Added linezolid as sputum had MRSA growing 09/11, CTA also showed worsened pneumonia on 09/10. A follow-up rib x-ray today showed improving pneumonia on 09/11 -- Plan to discharge patient home on 7 days total of linezolid and Levaquin for pneumonia. -- He is feeling much better, wBC has been stable. f/u x-ray showed improvement. 2: Hyponatremia, acute, POA -2/2 hypovolemia -Resolved 3. Leukocytosis, POA, secondary to infection with CAP -CBC again in am. -- Ordered pro-calcitonin and respiratory panel: Pro-calcitonin elevated respiratory panel negative -- Improving 4. Elevated D-Dimer of 2.66, POA. Wells score of 3 indicating 16 percent chance of PE. -CTA for PE is ordered, negative for PE -- DVT ultrasound of the right leg is ordered and is negative for DVT 5 Swollen and erythematous right leg: DVT ultrasound ordered and showed no DVT 5. Acute low back pain with sciatica and right sided foot drop, POA. Patient has had MRI and does have an appointment with an orthopedic surgeon -Percocet 10-325mg q4h PO PRN for pain -- Increased nighttime gabapentin dose to 300 extra -- Physical therapy/OT ordered -- Instructed staff to give ketorolac as needed for pleuritic pain -- Changed pain medication dose to Percocet 5 mg every 4 hours when necessary. From records it appears that he was taking up to 50 mg of pain medication until the day before yesterday however yesterday he only took 15 mg. -- We will give him pain meds, outpt PT/OT till he sees his ortho and PCP. 7. Anxiety, POA. Patient has Lorazepam 1-2mg PO TID PRN -He was given a taper protocol -- He is counselled on addicitve potential of this medication. 7. Hypertension, POA. -continue home Metoprolol XL 100mg PO daily. 9 onychomycosis/ foot fungal infection, chronic POA: Terbinafine cream is ordered 10 Rib pain, acute visit admission: Right rib x-rays ordered- no fractures. Encouraged incentive spirometry 11. Hyperkalemia: Albuterol treatments are initiated \. Kayexalate by mouth 5 g was given. Follow-up labs this evening at 4 PM. Stable PRN medications for nausea, heartburn, and constipation: ondansetron, maalox, senna, miralax. Exam Vital Signs (Last) Date Time Temp Pulse Resp B/P Pulse Ox O2 Delivery O2 Flow Rate FiO2 09/13/16 09:00 CPAP/BIPAP 09/13/16 06:31 36.7 89 20 147/84 94 09/08/16 05:50 2.00 Exam Gen.: Sitting up in bed no acute distress HEENT: Normocephalic, atraumatic Lungs much improved lung sounds pretty yesterday also wheezes Heart: Regular rate and rhythm no S3-S4 murmurs Abdomen obese, soft nondistended Extremities: Positive for trace edema bilaterally right greater than left Psych: Negative for anxiety Neuro: No focal deficits Test 09/07/16 22:30 09/07/16 22:50 09/08/16 04:25 09/08/16 06:03 Hemoglobin A1c 6.2% (4.8-5.6) D-Dimer 2.66mg/L FEU (<0.50) Lactic Acid Level 1.5mmol/L (0.4-2.0) Magnesium Level 2.3mg/dL (1.6-2.6) Hold Abarca Top Tube Received (Received) Urine Legionella pneumophilia Ag Negative (Negative) Neutrophils (%) (Auto) 75% (40-74) Lymphocytes (%) (Auto) 7% (14-46) Monocytes (%) (Auto) 15% (4-12) Eosinophils (%) (Auto) 0% (0-5) Basophils (%) (Auto) 0% (0-3) Band Neutrophils % 2% (1-5) Myelocytes % 1% (0-0) Hematology Comments Rbc Troponin T 0.010ug/L (0.0-0.011) Triglycerides Level 91mg/dL (0-149) Cholesterol Level 139mg/dL (100-199) LDL Cholesterol, Calculated 88.800mg/dL (0-99) VLDL Cholesterol 18.200mg/dL HDL Cholesterol 32mg/dL (>39) Cholesterol/HDL Ratio 4.34 (0.0-4.4) Test 09/11/16 05:40 09/12/16 06:05 09/13/16 05:45 Procalcitonin 0.28ng/mL (0.00-0.08) Total Bilirubin 0.3mg/dL (0.0-1.2) Aspartate Amino Transf (AST/SGOT) 47U/L (0-50) Alanine Aminotransferase (ALT/SGPT) 61U/L (0-44) Alkaline Phosphatase 85U/L (25-150) Total Protein 6.0g/dL (6.4-8.4) Albumin 3.0g/dL (3.4-5.0) White Blood Count 13.6th/mm3 (3.8-10.1) Red Blood Count 4.08mil/mm3 (4.40-5.80) Hemoglobin 11.7g/dL (13.8-17.2) Hematocrit 37.8% (41.0-50.0) Mean Corpuscular Volume 92.6fL (81-100) Mean Corpuscular Hemoglobin 28.7pg (27.0-35.0) Mean Corpuscular Hemoglobin Concent 31.0% (32.0-37.0) Red Cell Distribution Width 14.3% (12.3-15.4) Platelet Count 425bil/L (150-400) Sodium Level 138mEq/L (134-144) Potassium Level 4.6mEq/L (3.5-5.2) Chloride Level 97mEq/L (97-108) Carbon Dioxide Level 27mmol/L (18-29) Blood Urea Nitrogen 12mg/dL (6-24) Creatinine 0.88mg/dL (0.76-1.27) Estimat Glomerular Filtration Rate 96mL/min (>59) Glucose Level 128mg/dL (60-99) Calcium Level 8.9mg/dL (8.5-10.1) Microbiology Results Blood and Sputum cultures showed no growth to date Discharge Medications Discharge Medications ([Terbinafine Hcl]) 1 APPLIC/0.5 GM CREAM 1 APPLIC TOPICAL BID Prescribed by: BELLE MOJICA DO Gabapentin (Neurontin) 300 Mg Capsule 600 MG PO TID Prescribed by: BELLE MOJICA DO Gabapentin (Gabapentin) 300 Mg Capsule 300 MG PO HS Prescribed by: BELLE MOJICA DO Levofloxacin (Levaquin) 750 Mg Tablet 750 MG PO DAILY Prescribed by: BELLE MOJICA DO Linezolid (Linezolid) 600 Mg Tablet 600 MG PO BID Prescribed by: BELLE MOJICA DO Metoprolol Succinate ER (Metoprolol Succinate ER) 100 Mg Tab.er.24h 100 MG PO QAM (Reported) As needed Albuterol Sulfate (Ventolin HFA Inhaler) 200 Puff/18 Gm Inhaler 1 PUFF INH Q4 PRN PRN For Wheezing Prescribed by: BELLE MOJICA DO Benzonatate (Benzonatate) 100 Mg Capsule 100 MG PO TID PRN PRN For Cough Prescribed by: BELLE MOJICA DO Lorazepam (Ativan) 0.5 Mg Tablet 0.5 MG PO HS PRN PRN For Anxiety Prescribed by: BELLE MOJICA DO Polyethylene Glycol 3350 (Miralax) 17 Gm Powd.pack 17 GM PO DAILY PRN PRN For Constipation Prescribed by: BELLE MOJICA DO oxyCODONE-Acetaminophen 5-325 mg (oxyCODONE-Acetaminophen 5-325 mg) 1 Each Tablet 1 TAB PO Q4H PRN PRN For Pain Prescribed by: BELLE MOJICA DO Additional med instructions Please taper down ativan as below. take 0.5 mg PO every other night for a week, then twice a week, then once a week, then stop. Followup Plan Follow-up plan Please set up patient with [facility] clinic as he is interested in switching providers. in 7days Please set up outpt PT for his lumbar pain/sciatica for 2 weeks. F/U CBC prior to appt with PCP Discharge Diet: Heart Healthy Discharge Activity: Outpatient Physical Therapy Belle Mojica DO Sep 13, 2016 12:33
--- NOTE | 2016-09-13 12:48 | NUR ---
Social Work: Discharge Data/Assessment: Pt is on day 6 of hospitalization. Pt has been up and independent in room. Pt has been medically cleared for discharge. SW confirms pt will be discharged home today via POV with no needs. Plan: Pt will discharge home today via POV with no needs. ZAIDA Philippe
--- NOTE | 2016-09-13 14:09 | NUR ---
Discharge Home discharge instructions, medications, and follow-up instructions reviewed with patient. follow-up appointment made for patient at the residency clinic. phone number for out-patient physical therapy given with instructions to call tomorrow to set up an appointment. patient verbalized understanding and agreed with plan of care.
== END 2016-09-13 13:55 | disposition home or self-care (01) | DRG 871 ==
LOC: SED 20:35 → OSC 23:56
PROVIDERS: ADMIT Internal Medicine; ATTEND Internal Medicine
DX: A41.9 Sepsis, unspecified organism (principal); J18.9 Pneumonia, unspecified organism; E87.1 Hypo-osmolality and hyponatremia; F41.9 Anxiety disorder, unspecified; I10 Essential (primary) hypertension; M54.41 Lumbago with sciatica, right side; K21.9 Gastro-esophageal reflux disease without esophagitis; R22.41 Localized swelling, mass and lump, right lower limb; R07.81 Pleurodynia; B35.1 Tinea unguium; B95.62 Methicillin resistant Staphylococcus aureus infection as the cause of diseases classified elsewhere

== ENCOUNTER 2016-11-15 10:47 | Emergency (ER) | payer OTHER ==
[~2016-11-15] VITALS: Ht 180.3 cm; Wt 129.0 kg
[~2016-11-15 10:47] MED LIST changes: +ALBU18HF INH; +BENZ100C8 PO; -BENZ200C44 PO; -DIPH1TAB PO; -DXM4T PO; +GABA-502 PO; +GABA300C PO; +LEVO750T9 PO; +LINE600T7 PO; +LORA-302 PO; -LORA1TAB PO; -NPR500T PO; -OXYC-474 PO; +OXYC1TAB24 PO; -PARO10OR3 PO; +POLY17PO6 PO; +Terbinafine Hcl TOPICAL
[2016-11-15 11:15] VITALS: BP 198/112; PULSE 120; RESP 18; O2SAT 98
[2016-11-15 13:28] VITALS: BP 194/105; PULSE 120; O2SAT 97
--- NOTE | 2016-11-15 13:55 | ED.REPORT ---
HPI-General Illness Date of Service Nov 15, 2016 ED Provider: Bella Miguel MD Patient is a 51 year old male with a hx of EtOH abuse and HTN who presents to the ED wanting to detox from alcohol. He began drinking heavily again (1/2 gallon of vodka a day) 3 weeks ago after being sober for about a year. He complains of anxiety. He denies melena, vomiting, or any other symptoms. He did not take his metoprolol this morning. His last drink was this morning. Nursing Notes Stated Complaint: ALCOHOL WITHDRAWAL Chief Complaint: Substance Abuse Nursing Notes Reviewed: Yes Allergies: Coded Allergies: No Known Allergies (Verified Allergy, Unknown, 03/02/16) Scheduled ([Terbinafine Hcl]) 1 APPLIC/0.5 GM CREAM 1 APPLIC TOPICAL BID Gabapentin (Neurontin) 300 Mg Capsule 600 MG PO TID Gabapentin (Gabapentin) 300 Mg Capsule 300 MG PO HS Levofloxacin (Levaquin) 750 Mg Tablet 750 MG PO DAILY Linezolid (Linezolid) 600 Mg Tablet 600 MG PO BID Metoprolol Succinate ER (Metoprolol Succinate ER) 100 Mg Tab.er.24h 100 MG PO QAM Metoprolol Succinate ER (Metoprolol Succinate ER) 100 Mg Tab.er.24h 100 MG PO DAILY Paroxetine (Paxil) 10 Mg Tab 10 MG PO HS Scheduled PRN Albuterol Sulfate (Ventolin HFA Inhaler) 200 Puff/18 Gm Inhaler 1 PUFF INH Q4 PRN PRN For Wheezing Benzonatate (Benzonatate) 100 Mg Capsule 100 MG PO TID PRN PRN For Cough Lorazepam (Ativan) 0.5 Mg Tablet 0.5 MG PO HS PRN PRN For Anxiety Lorazepam (Ativan) 2 Mg Tablet 2 MG PO taper PRN PRN For Insomnia 2 mg by mouth every 6 hours for doses. Half a tablet every 6 hours 8 doses. Half tablet 12 hours 2 doses Polyethylene Glycol 3350 (Miralax) 17 Gm Powd.pack 17 GM PO DAILY PRN PRN For Constipation oxyCODONE-Acetaminophen 5-325 mg (oxyCODONE-Acetaminophen 5-325 mg) 1 Each Tablet 1 TAB PO Q4H PRN PRN For Pain General Time Seen by MD: 13:51 Chief Complaint Other (EtOH withdrawal) Hx Obtained From: Patient Arrived By: Walk-in Similar Sx Previous: Yes Past Medical History Past Medical History Hypertension Prostate cancer Anxiety Disc herniation EtOH abuse Reports: GERD Past Surgical History Prostate surgery eye surgery as child, cannot move right eye Family History Mother has history of stomach cancer Smoking History Never Smoker Social History Alcohol Use: Denies alcohol use Drug Use: Denies drug use Other Social History: Good social support, , Local resident Ambulatory Status Independent Review of Systems +EtOH withdrawal Full Review of Systems GI: Denies: Melena, Vomiting Psychiatric: Reports: Anxiety Complete sys rev & neg: except as marked. Physical Exam Vital Signs Vital Signs Date Time Temp Pulse Resp B/P Pulse Ox O2 Delivery O2 Flow Rate FiO2 11/15/16 14:50 36.7 123 13 185/106 98 Room Air 11/15/16 13:28 37.1 120 194/105 97 Room Air 11/15/16 11:15 36.7 120 18 198/112 98 Room Air Initial VS: Reviewed Respiratory: Breath sounds normal, Clear to auscultation, No respiratory distress Skin: Warm, Dry General/Constitutional: Awake, Alert, Cooperative Appropriate Head / Eyes: Atraumatic, Normocephalic L eye irritated but full vision R eye proptosis Heart Rate / Rhythm: Positive: Tachycardia Abdomen: Soft, Non-tender Lower Extremity / Pelvis / MS: No edema Neurologic: Oriented X3, Speech NL Slight tremor Abnormal Mood/Affect: Positive: Anxious Focused Interpretation & Diagnostics Lab Results Interpretation Result Diagram: 11/15/16 1430 11/15/16 1430 Test 11/15/16 14:30 11/15/16 15:17 White Blood Count 9.9th/mm3 (3.8-10.1) Red Blood Count 5.24mil/mm3 (4.40-5.80) Hemoglobin 16.2g/dL (13.8-17.2) Hematocrit 48.1% (41.0-50.0) Mean Corpuscular Volume 91.8fL (81-100) Mean Corpuscular Hemoglobin 30.9pg (27.0-35.0) Mean Corpuscular Hemoglobin Concent 33.7% (32.0-37.0) Red Cell Distribution Width 16.1% (12.3-15.4) Platelet Count 186bil/L (150-400) Neutrophils (%) (Auto) 87.5% (40-74) Lymphocytes (%) (Auto) 6.6% (14-46) Monocytes (%) (Auto) 5.3% (4-12) Eosinophils (%) (Auto) 0.1% (0-5) Basophils (%) (Auto) 0.1% (0-3) Sodium Level 136mEq/L (134-144) Potassium Level 4.2mEq/L (3.5-5.2) Chloride Level 91mEq/L (97-108) Carbon Dioxide Level 15mmol/L (18-29) Blood Urea Nitrogen 12mg/dL (6-24) Creatinine 0.63mg/dL (0.76-1.27) Estimat Glomerular Filtration Rate 142mL/min (>59) Glucose Level 68mg/dL (60-99) Calcium Level 9.8mg/dL (8.5-10.1) Phosphorus Level 3.0mg/dL (2.5-4.9) Magnesium Level 1.6mg/dL (1.6-2.6) Total Bilirubin 0.8mg/dL (0.0-1.2) Aspartate Amino Transf (AST/SGOT) 80U/L (0-50) Alanine Aminotransferase (ALT/SGPT) 54U/L (0-44) Alkaline Phosphatase 118U/L (25-150) Total Protein 9.2g/dL (6.4-8.4) Albumin 5.2g/dL (3.4-5.0) Alcohols 24mg/dL (0-10) ECG Interpretation ECG Interpretation: Sinus tachy rate 113 Left atrial enlargement Time: 14:45 Interpreted by: ED physician Re-Eval/Medical Decision Med Decision/Clinical Course 51-year-old man with a year of sobriety now with 3 weeks of relapse back to drinking half a gallon of vodka a day. Has never had seizures. Has done well with outpatient detox before. Would like to go to crisis respite. Very appropriate person for outpatient Ativan taper to help with his alcohol sobering Time of Eval: 14:06 Re-Evaluation/Progress Note: Discussed plan to call Crisis to see if they have a bed for him. Patient understands and agrees with plan. All questions addressed at this time. Counseled Regarding: Diagnosis, Need for follow-up, When/why to return to ED Discharge & Departure Primary Impression: Alcoholism Additional Impression: Alcohol withdrawal Complication of substance-induced condition: uncomplicated Qualified Code: F10.230 - Alcohol dependence with withdrawal, uncomplicated Disposition: Home (crisis respit) Discharge Condition All VS Reviewed: Yes Condition: Stable Additional Instructions: Good luck at crisis respite. Your next dose of Ativan will be at midnight You do not need your metoprolol or Paxil tomorrow I wish you well and getting back to sobriety Referrals: Joan Quick DO (PCP) Scribe Attestation Portions of this note were transcribed by Lucrecia Nicole. I, Dr. Miguel personally performed the history, physical exam and medical decision-making; I reviewed and confirmed the accuracy of the information in the transcribed note. Signed by: Lucrecia Nicole 11/15/16, 2984 copies to: Joan Quick Shawna L MD Nov 15, 2016 13:55 LUCRECIA NICOLE Nov 15, 2016 14:05
[2016-11-15] MEDS ORDERED: Ondansetron 2 mg/mL 2 mL Inj IVPUSH ONE (14:00)
[2016-11-15] MEDS ORDERED: Thiamine Inj 100 MG, Folic Acid Inj 1 MG, Magnesium Sulfate 50% Inj 2 GM, Multivitamins... IV ONE ×5 (14:00)
[2016-11-15 14:38] LABS: BASOPHILS % (AUTO) 0.1 % (0-3); EOSINOPHILS % (AUTO) 0.1 % (0-5); MONOCYTES % (AUTO) 5.3 % (4-12); Mean Corpuscular Hemoglobin 30.9 pg (27.0-35.0); Mean Corpuscular Volume 91.8 fL (81-100); NEUTROPHILS % (AUTO) 87.5 % (40-74); Platelet Count 186 bil/L (150-400)
[2016-11-15 14:50] VITALS: BP 185/106; PULSE 123; RESP 13; O2SAT 98
[2016-11-15] MEDS ORDERED: MeTOProlol XL 50 mg ER24 Tablet PO ONE (14:50)
[2016-11-15] MEDS ORDERED: PARoxetine 20 mg Tablet PO ONE (14:50)
[2016-11-15] MEDS ORDERED: METO-274 PO (14:53)
[2016-11-15] MEDS ORDERED: PARO10TA24 PO (14:53)
[2016-11-15] MEDS ORDERED: LORA-305 PO (14:53)
[2016-11-15 15:00] LABS: Magnesium 1.6 mg/dL (1.6-2.6)
[2016-11-15 16:00] VITALS: BP 164/97; PULSE 110; RESP 19; O2SAT 95
[2016-11-15 17:56] VITALS: BP 191/106; PULSE 99; RESP 25; O2SAT 94
[2016-11-15] MEDS ORDERED: Labetalol 5 mg/mL 4 mL Inj IVPUSH ONE (18:25)
[2016-11-15] MEDS ORDERED: Labetalol 5 mg/mL 20 mL Inj IV ONE (18:30)
[2016-11-15 19:02] VITALS: BP 160/95; PULSE 100; RESP 20; O2SAT 96
== END 2016-11-15 19:09 | disposition home or self-care (01) ==
LOC: SED 10:47
DX: F10.230 Alcohol dependence with withdrawal, uncomplicated (principal); I10 Essential (primary) hypertension; K21.9 Gastro-esophageal reflux disease without esophagitis; F41.9 Anxiety disorder, unspecified
CPT/HCPCS: 36415; 80053; 81002; 82075; 83735; 84100; 85025; 90791; 93005; 96365; 96375; 99285; G0480; J2405; J3360; J3475; J7030